=== PATIENT | female | born 1970 | race Caucasian/White ===

== ENCOUNTER 2022-03-11 08:50 | Emergency (ER) | payer OTHER ==
[~2022-03-11] VITALS: Ht 170 cm; Wt 68.0 kg
--- NOTE | 2022-03-11 09:22 | ED EENT ---
History of Present Illness General Chief Complaint: Eye Problems Stated Complaint: LOSS OF VISION Source: patient Exam Limitations: no limitations History of Present Illness Date Seen by Provider: Mar 11, 2022 Time Seen by Provider: 08:57 Initial Comments Patient to the ER by private conveyance from work with chief complaint about 1 hour prior to arrival she started experiencing bright flashes of light in her left eye. She was not doing anything strenuous nor has she had any recent head trauma. She has a history of 3 aneurysms that have been coiled by interventional radiology at [facility]. She is followed with a neurologist at [facility] in the past but does not remember his name. She has history of seizures after her bleed a few years ago but does not take AEDs. She recently moved to the area a year ago and does not have a primary care doctor. She called Dr. Painting, interventional radiology at [facility] and they recommend she come to the ER. She says Thursday, 2 days ago the same thing happened and lasted for about an hour or so and then went away. She went to a local ER Thursday, 2 days ago and they did a CT and some blood work and told her they were not sure what was causing her symptoms and told her to follow-up with a doctor yesterday. She is having a mild right parietal scalp headache. She did not have this headache 2 days ago. She has not taken anything for it. She is not on any blood thinners. She smokes daily and drinks alcohol daily. She says she had some memory troubles while she was having the flashes of light on Thursday and does not remember half an hour of her visit to the ER. Allergies and Home Medications Allergies Coded Allergies: bee venom protein (honey bee) (Verified Allergy, Unknown, Anaphylaxis, 03/11/22) Patient Home Medication List Home Medication List Reviewed: Yes Review of Systems Review of Systems Constitutional: No chills, No diaphoresis Eyes: Denies Blindness, Denies Blurred Vision Ears: Denies Dizziness, Denies Pain Nose: denies clots, denies congestion Mouth: denies clots, denies pain, denies swelling Throat: denies pain, denies swelling Respiratory: No cough, No hemoptysis Cardiovascular: No chest pain, No palpitations Gastrointestinal: No abdominal pain, No constipation, No diarrhea All Other Systems Reviewed Negative Unless Noted: Yes Past Jfrkspl-Zuitqk-Sitsgt Hx Patient Social History Tobacco Use?: Yes Tobacco type used: Cigarettes Smoking Status: Current Everyday Smoker Use of E-Cig and/or Vaping dev: No Substance use?: No Alcohol Use?: Yes Alcohol type: Beer Alcohol Frequency: Daily Physical Exam Vital Signs Vital Signs - First Documented 03/11/22 09:05 Temp 36.5 Pulse 98 Resp 16 B/P (MAP) 148/88 (108) Height, Weight, BMI Height: '" Weight: lbs. oz. kg; BMI Method: General Appearance: WD/WN, mild distress Eyes: bilateral eye normal inspection, bilateral eye PERRL, bilateral eye EOMI, bilateral eye other (Bilateral pupils are 4 mm, reactive without any cell and flare on funduscopic exam. Vessels unremarkable. No erythema or injection, exudate or other external adventitious findings.) Ears: bilateral ear auricle normal, bilateral ear canal normal, bilateral ear TM normal Nose: normal inspection; No active bleeding Mouth/Throat: normal mouth inspection, pharynx normal Neck: full range of motion, supple, normal inspection Cardiovascular: normal peripheral pulses, regular rate, rhythm, no edema Respiratory: lungs clear, normal breath sounds, no respiratory distress, no ac cessory muscle use Gastrointestinal: normal bowel sounds, non tender, soft Neurologic/Psychiatric: alert, normal mood/affect, oriented x 3 Progress/Results/Core Measures Results/Orders Lab Results Laboratory Tests Test 03/11/22 09:25 Range/Units White Blood Count 9.0 4.3-11.0 10^3/uL Red Blood Count 4.72 3.80-5.11 10^6/uL Hemoglobin 15.1 11.5-16.0 g/dL Hematocrit 46 35-52 % Mean Corpuscular Volume 98 80-99 fL Mean Corpuscular Hemoglobin 32 25-34 pg Mean Corpuscular Hemoglobin Concent 33 32-36 g/dL Red Cell Distribution Width 12.8 10.0-14.5 % Platelet Count 228 130-400 10^3/uL Mean Platelet Volume 9.5 9.0-12.2 fL Immature Granulocyte % (Auto) 0 % Neutrophils (%) (Auto) 75 42-75 % Lymphocytes (%) (Auto) 17 12-44 % Monocytes (%) (Auto) 7 0-12 % Eosinophils (%) (Auto) 2 0-10 % Basophils (%) (Auto) 0 0-10 % Neutrophils # (Auto) 6.7 1.8-7.8 10^3/uL Lymphocytes # (Auto) 1.5 1.0-4.0 10^3/uL Monocytes # (Auto) 0.6 0.0-1.0 10^3/uL Eosinophils # (Auto) 0.2 0.0-0.3 10^3/uL Basophils # (Auto) 0.0 0.0-0.1 10^3/uL Immature Granulocyte # (Auto) 0.0 0.0-0.1 10^3/uL Erythrocyte Sedimentation Rate 7 0-30 MM/HR Sodium Level 141 135-145 MMOL/L Potassium Level 4.1 3.6-5.0 MMOL/L Chloride Level 106 98-107 MMOL/L Carbon Dioxide Level 22 21-32 MMOL/L Anion Gap 13 5-14 MMOL/L Blood Urea Nitrogen 13 7-18 MG/DL Creatinine 0.67 0.60-1.30 MG/DL Estimat Glomerular Filtration Rate 106 BUN/Creatinine Ratio 19 Glucose Level 106 H 70-105 MG/DL Calcium Level 9.8 8.5-10.1 MG/DL C-Reactive Protein High Sensitivity 0.12 0.00-0.50 MG/DL My Orders Orders - MERCEDEZ DUBIOS Ct Head Wo-R/O Stroke (03/11/22 09:14) Ed Iv/Invasive Line Start (03/11/22 09:14) Cbc With Automated Diff (03/11/22 09:16) Hs C Reactive Protein (03/11/22 09:16) Basic Metabolic Panel (03/11/22 09:16) Ed Iv/Invasive Line Start (03/11/22 09:16) Ns Iv 500 Ml (Sodium Chloride 0.9%) (03/11/22 09:30) Erythrocyte Sedimentation Rate (03/11/22 09:27) Lorazepam Injection (Ativan Injection) (03/11/22 11:15) Ct Angio Head/Neck (03/11/22 11:09) Lorazepam Injection (Ativan Injection) (03/11/22 11:12) Iohexol Injection (Omnipaque 350 Mg/Ml 1 (03/11/22 11:30) Ns (Ivpb) (Sodium Chloride 0.9% Ivpb Bag (03/11/22 11:30) Medications Given in ED Current Medications Medications Dose Ordered Sig/Dereje Route Start Time Stop Time Status Last Admin Dose Admin Iohexol 100 ml ONCE ONCE IV 03/11/22 11:30 03/11/22 11:31 DC 03/11/22 11:34 75 ML Lorazepam 1 mg ONCE ONCE IVP 03/11/22 11:15 03/11/22 11:16 DC 03/11/22 11:13 1 MG Sodium Chloride 100 ml ONCE ONCE IV 03/11/22 11:30 03/11/22 11:31 DC 03/11/22 11:34 80 ML Sodium Chloride 500 ml @ 0 mls/hr Q0M ONCE IV 03/11/22 09:30 03/11/22 09:31 DC 03/11/22 09:45 500 MLS/HR Vital Signs/I&O 03/11/22 09:05 Temp 36.5 Pulse 98 Resp 16 B/P (MAP) 148/88 (108) Progress Progress Note #1: Time: 09:25 Progress Note Unremarkable basic funduscopic exam. Plan to get visual acuity screening and diane cordoba consult with [facility] neurology. Differential includes partial, complex seizures, less likely a bleed such as a subarachnoid, headache syndrome although this is less likely to present in the sixth decade of life. We will complete a CT with IV contrast. If she was having a bleed then hopefully something will show up 2 days later. She does not have any meningismus signs and has a septic vitals. We will check some basic labs including a CRP and ESR. Progress Note #2: Time: 10:20 Progress Note Discussed the case with the triage nurse at [facility] and they are paging neurology. Progress Note #3: Time: 10:[address] Lange from [facility] call us back as well as Dr. Mitchell's from the triage center called us back we had a conversation about her case and they recommended we consult with neuro interventional radiology. They recommend she be on antiplatelets and from their standpoint outpatient follow-up would be fine. Stephanie from the triage center will call us back with neuro interventional radiology for a consult. Progress Note #4: Time: 10:43 Progress Note Discussed the case with neuro IR Dr. Ribera who is familiar with her case. He says her last procedure was a little over a year ago and he is okay with aspirin monotherapy only. He said the last thing that they were concerned about was her contralateral carotid and that should not explain anything in her left eye. He would recommend a CT angiogram on outpatient basis and his office will set that up. They will also set up follow-up for her. He would like us to make sure there is nothing such as vitreous humor detachment or other intraocular pathology by getting a good slit-lamp examination by ophthalmology or optometry set up. We will reach out to Dr. Gautam's office and see if we can get this done today. Progress Note #5: Time: 11:58 Progress Note About half an hour to 45 minutes ago the patient started having some full body twitching which she could not voluntarily suppress or control. She says she felt very confused. She had difficulty walking to the bathroom and when she came out did not know where she was. We put her in bed and gave her a milligram of Ativan the theory that she is perhaps having a complex partial seizure and about 15 minutes later when we checked on her her twitching activity had gone away. She now knows where she is and remembers the plan. She is having a little bit of difficulty with fine motor control of her upper extremities and lower extremities but is otherwise neurologically intact. While she was having these involuntary twitching motions she was also looking to the left and had leftward gaze deviation however she could overcome it voluntarily on command. Went ahead and completed the CT angiogram and we will discussed the results of this and are clinical findings with neuro IR at [facility]. Progress Note #6: Time: 13:02 Progress Note The patient is sitting up in a chair no longer complaining of any flashes of light in her eye nor having problems with depth perception. She is able to type on her phone. She answers questions appropriately and appears to be neurologically intact. She has called for a ride to take her to the eye doctor's office for slit-lamp examination. Return precautions were discussed and if she does not hear from neuro interventional radiology today then she is to call them in the morning. Diagnostic Imaging Diagonstic Imaging: CT Plain Films/CT/US/NM/MRI: head Comments [facility], [place] NAME: SANDRA VILLARREAL [facility] REC#: [id number] PT STATUS: REG ER : 1970 PHYSICIAN: MERCEDEZ DUBOIS MD ADMIT DATE: 03/11/22/ER Draft Date of Exam:03/11/22 CT HEAD WO-R/O STROKE PROCEDURE: CT head wo r/o stroke. TECHNIQUE: Multiple contiguous axial images were obtained through the brain without the use of intravenous contrast. Auto Exposure Controls were utilized during the CT exam to meet ALARA standards for radiation dose reduction. INDICATION: Neuro deficit. No prior studies are available for comparison. There appear to be embolization coils in the region of the [place] of [place] on the left side from prior aneurysm surgery. Ventricles and sulci are within normal limits. No sulcal effacement or midline shift is identified. No acute intra-axial or extra-axial hemorrhage is detected. Cisterns are patent. Visualized paranasal sinuses are clear. IMPRESSION: No acute intracranial process is detected. Dictated on workstation # [id number] Dict: 03/11/22 0939 Trans: 03/11/22 0944 [facility] [id number] Interpreted by: CARIN CALABRESE MD Electronically signed by: Reviewed: Reviewed by La Diagonstic Imaging: CT (angio) Plain Films/CT/US/NM/MRI: head Comments [facility]. [place], [place] NAME: SANDRA VILLARREAL [facility] REC#: [id number] PT STATUS: REG ER : 1970 PHYSICIAN: MERCEDEZ DUBOIS MD ADMIT DATE: 03/11/22/ER Draft Date of Exam:03/11/22 CT ANGIO HEAD/NECK PROCEDURE: CT angiography of the head and CT angiography of the neck with and without contrast. TECHNIQUE: Contiguous noncontrast images were obtained from the skull base through the vertex. After intravenous contrast administration, helical CT angiography of the neck was performed. Source data was reformatted into 3D MIP projections. Delayed postcontrast acquisition was also obtained. Auto Exposure Controls were utilized during the CT exam to meet ALARA standards for radiation dose reduction. INDICATION: History on earlier performed noncontrasted head CT was for "neurological deficit". That study was nonacute. CT angiogram neck and head performed for vascular evaluation. FINDINGS: Delayed postcontrast-enhanced CT showed no hemorrhage or contrast extravasation. No abnormal enhancement. 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 The branching pattern of the great vessels is otherwise normal. Cervical vertebral arteries are dominant on the left and small but nonfocal and nonpathologic on the right. Bilateral common carotids are patent. There are mixed soft and hard calcified plaques at the carotid bulbs and bifurcations, greater left, while there is no hemodynamically significant degree of stenosis. Cervical internal carotids beyond that level are widely patent and nonfocal. CT ANGIOGRAM HEAD: Minimal scattered calcified plaques in the left intradural vertebral, non-stenosing; the right nonfocal. There is calcified plaque at the basilar resulting in a moderate stenosis at its distal third. No basilar thrombus or occlusion. The bilateral HOUSEKEEPER HEAD segments are opacified. There is a presumed aneurysm coil mass at the periophthalmic right ICA and the supraclinoid left ICA. This metallic artifact results in some regional distortion. No filling of an aneurysmal sac is identified. The A1 segments, the A-comm, and the anterior cerebral arteries are patent. The bilateral middle cerebral arterial segments showed no identifiable thrombus or occlusion. There is some atherosclerotic narrowing of the right M1 segment of less than 50%. No opacified untreated aneurysm is identified. No contrast extravasation. IMPRESSION: Treated intracranial ICA aneurysms without sac filling. No untreated aneurysm found. No thrombus or large vessel occlusion, and no hemodynamically significant arterial stenosis in the neck or head. Dictated on workstation # [id number] Dict: 03/11/22 1143 Trans: 03/11/22 1215 [id number] Interpreted by: NEHEMIAS HOOKER Electronically signed by: Reviewed: Reviewed by Me Consults : Consulting Physician: NEYDA GAUTAM OD Consults Notes [id number]: Discussed the case with Dr. Gautam, optometry and we are grateful that he is able to work the patient in at 1300. Departure Impression Primary Impression: Photopsia of left eye Additional Impression: History of cerebral aneurysm repair Disposition: 01 HOME, SELF-CARE Condition: Stable Departure-Patient Inst. Decision time for Depature: 13:03 Referrals: NEYDA GAUTAM OD NO,LOCAL PHYSICIAN (PCP) Primary Care Physician Patient Instructions: Brain Aneurysm (DC) Add. Discharge Instructions: Go straight to Dr. Gautam's office. After they perform a slit-lamp exam if there is nothing further to be done there then you should hear from the interventional radiology clinic. If they do not call you today then call them first thing in the morning to make the next step in your plan. All discharge instructions reviewed with patient and/or family. Voiced understanding. Work/School Note: Work Release Form Date Seen in the Emergency Department: Mar 11, 2022 Return to Work: Mar 17, 2022 Restrictions: No Restrictions Copy Copies To 1: NEYDA GAUTAM OD, TITUS J Mar 11, 2022 09:22
[2022-03-11] MEDS ORDERED: NS IV 500 ML 500 ML IV ONE (09:30)
[2022-03-11 09:32] LABS: BASOPHILS % (AUTO) 0 % (0-10); EOSINOPHILS # (AUTO) 0.2 10^3/uL (0.0-0.3); EOSINOPHILS % (AUTO) 2 % (0-10); HEMATOCRIT 46 % (35-52); HEMOGLOBIN 15.1 g/dL (11.5-16.0); LYMPHOCYTES # (AUTO) 1.5 10^3/uL (1.0-4.0); LYMPHOCYTES % (AUTO) 17 % (12-44); MEAN CORPUSCULAR HEMOGLOBIN 32 pg (25-34); MEAN CORPUSCULAR HGB CONC 33 g/dL (32-36); MEAN CORPUSCULAR VOLUME 98 fL (80-99); MEAN PLATELET VOLUME 9.5 fL (9.0-12.2); MONOCYTES # (AUTO) 0.6 10^3/uL (0.0-1.0); MONOCYTES % (AUTO) 7 % (0-12); NEUTROPHILS # (AUTO) 6.7 10^3/uL (1.8-7.8); NEUTROPHILS % (AUTO) 75 % (42-75); PLATELET COUNT 228 10^3/uL (130-400)
--- NOTE | 2022-03-11 09:46 | Diagnostic Imaging Report ---
PROCEDURE: CT head wo r/o stroke. TECHNIQUE: Multiple contiguous axial images were obtained through the brain without the use of intravenous contrast. Auto Exposure Controls were utilized during the CT exam to meet ALARA standards for radiation dose reduction. INDICATION: Neuro deficit. No prior studies are available for comparison. There appear to be embolization coils in the region of the [place] of [place] on the left side from prior aneurysm surgery. Ventricles and sulci are within normal limits. No sulcal effacement or midline shift is identified. No acute intra-axial or extra-axial hemorrhage is detected. Cisterns are patent. Visualized paranasal sinuses are clear. IMPRESSION: No acute intracranial process is detected. Dictated by: Dictated on workstation # [id number]
[2022-03-11 09:52] LABS: ERYTHROCYTE SEDIMENTATION RATE 7 MM/HR (0-30)
[2022-03-11 10:00] LABS: POTASSIUM 4.1 MMOL/L (3.6-5.0)
[2022-03-11 10:01] LABS: CALCIUM 9.8 MG/DL (8.5-10.1)
[2022-03-11 10:06] LABS: CREATININE SERUM 0.67 MG/DL (0.60-1.30)
[2022-03-11] MEDS ORDERED: LORazepam INJ 2 MG/ML (ATIVAN) VIAL ONE (11:12)
[2022-03-11] MEDS ORDERED: LORazepam INJ 2 MG/ML (ATIVAN) VIAL IVP ONE (11:15)
[2022-03-11] MEDS ORDERED: NS 100 ML (IVPB) BAG IV ONE (11:30)
[2022-03-11] MEDS ORDERED: IOHEXOL 350 MG/ML 100 ML (OMNIPAQUE 350) VIAL IV ONE (11:30)
--- NOTE | 2022-03-11 12:15 | Diagnostic Imaging Report ---
PROCEDURE: CT angiography of the head and CT angiography of the neck with and without contrast. TECHNIQUE: Contiguous noncontrast images were obtained from the skull base through the vertex. After intravenous contrast administration, helical CT angiography of the neck was performed. Source data was reformatted into 3D MIP projections. Delayed postcontrast acquisition was also obtained. Auto Exposure Controls were utilized during the CT exam to meet ALARA standards for radiation dose reduction. INDICATION: History on earlier performed noncontrasted head CT was for "neurological deficit". That study was nonacute. CT angiogram neck and head performed for vascular evaluation. FINDINGS: Delayed postcontrast-enhanced CT showed no hemorrhage or contrast extravasation. No abnormal enhancement. 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 The branching pattern of the great vessels is otherwise normal. Cervical vertebral arteries are dominant on the left and small but nonfocal and nonpathologic on the right. Bilateral common carotids are patent. There are mixed soft and hard calcified plaques at the carotid bulbs and bifurcations, greater left, while there is no hemodynamically significant degree of stenosis. Cervical internal carotids beyond that level are widely patent and nonfocal. CT ANGIOGRAM HEAD: Minimal scattered calcified plaques in the left intradural vertebral, non-stenosing; the right nonfocal. There is calcified plaque at the basilar resulting in a moderate stenosis at its distal third. No basilar thrombus or occlusion. The bilateral AURICULOTHERAPIST segments are opacified. There is a presumed aneurysm coil mass at the periophthalmic right ICA and the supraclinoid left ICA. This metallic artifact results in some regional distortion. No filling of an aneurysmal sac is identified. The A1 segments, the A-comm, and the anterior cerebral arteries are patent. The bilateral middle cerebral arterial segments showed no identifiable thrombus or occlusion. There is some atherosclerotic narrowing of the right M1 segment of less than 50%. No opacified untreated aneurysm is identified. No contrast extravasation. IMPRESSION: Treated intracranial ICA aneurysms without sac filling. No untreated aneurysm found. No thrombus or large vessel occlusion, and no hemodynamically significant arterial stenosis in the neck or head. Dictated by: Dictated on workstation # [id number]
[2022-03-11 13:33] VITALS: BP 114/75
[2022-03-12] MEDS ORDERED: AMLO-251 PO (11:59)
[2022-03-12] MEDS ORDERED: CALC-250 PO (11:59)
[2022-03-12] MEDS ORDERED: IBUP-2473 PO (11:59)
[2022-03-12] MEDS ORDERED: MAGN500T PO (11:59)
[2022-03-12] MEDS ORDERED: NAPR220T66 PO (11:59)
[2022-03-12] MEDS ORDERED: METO50TA15 PO (11:59)
[2022-03-12] MEDS ORDERED: TELM20TA6 PO (11:59)
[2022-03-12] MEDS ORDERED: ACET-2267 PO (11:59)
[2022-03-12] MEDS ORDERED: CETI10TA17 PO (11:59)
[2022-03-12] MEDS ORDERED: UBID100C17 PO (11:59)
[2022-03-12] MEDS ORDERED: ASPI-1238 PO (12:57)
== END 2022-03-11 13:34 | disposition home or self-care (01) ==
LOC: ER 08:54
DX: H53.19 Other subjective visual disturbances (principal); F17.210 Nicotine dependence, cigarettes, uncomplicated; Z86.79 Personal history of other diseases of the circulatory system
CPT/HCPCS: 36415; 70450; 70496; 70498; 80048; 85025; 85652; 86141

== ENCOUNTER 2022-03-11 17:08 | Observation (INO) | payer OTHER ==
[~2022-03-11] VITALS: Ht 170 cm; Wt 68.0 kg
--- NOTE | 2022-03-11 17:53 | ED Neurological Problem ---
General Chief Complaint: Neurological Problems Stated Complaint: VISION CHANGES Nursing Triage Note: ARRIVED VIA AMB TO ROOM 07 ET WAS SENT OVER FROM DR YOO'S OFFICE FOR POSSIBLE STROKE. PT WAS SEEN THIS AM AFTER HAVING VISION CHANGES STARTING AT 0715 TODAY. PT STATES SHE IS BETTER NOW. EYES DILATED FROM THE 'S OFFICE. Source: patient Exam Limitations: no limitations History of Present Illness Date Seen by Provider: Mar 11, 2022 Time Seen by Provider: 17:30 Initial Comments Patient to the ER by private conveyance from Dr. Grewal's office with concernin g symptoms of homonymous hemianopsia on the left side that may point to a central lesion such as a stroke. Patient states she is feeling much better now. The flashes of light are gone and most her peripheral vision has returned. Her balance is better and she is able to walk without standby assist. She has a pertinent history of multiple coiled aneurysms by neuro interventional radiology at [facility] in [facility]. The patient was here in the ER earlier this shift and we had been in contact with the neuro IR team at [facility] Dr. Ribera. She was sent to get a slit-lamp dilated eye exam which did not reveal intraocular pathology. Allergies and Home Medications Allergies Coded Allergies: bee venom protein (honey bee) (Verified Allergy, Unknown, Anaphylaxis, 03/11/22) Patient Home Medication List Home Medication List Reviewed: Yes Review of Systems Review of Systems Constitutional: No chills, No diaphoresis Eyes: See HPI; Denies Blindness, Denies Drainage Ears, Nose, Mouth, Throat: denies ear pain, denies ear discharge Respiratory: No cough, No hemoptysis Cardiovascular: No chest pain, No palpitations Gastrointestinal: No abdominal pain, No nausea Genitourinary: No discharge, No dysuria Musculoskeletal: No back pain, No joint pain All Other Systems Reviewed Negative Unless Noted: Yes Past Brueutx-Dgnwic-Kjbbiu Hx Patient Social History Tobacco Use?: Yes Smoking Status: Current Everyday Smoker Substance use?: No Alcohol Use?: Yes Alcohol type: Beer Alcohol Frequency: Daily Immunizations Up To Date First/Initial COVID19 Vaccinat: 2020 Second COVID19 Vaccination Cooper: [place] DATE COVID19 Vaccine Career Development Specialist: MOISES Physical Exam Vital Signs Vital Signs - First Documented 03/11/22 17:15 Temp 36.3 Pulse 105 Resp 16 B/P (MAP) 144/92 (109) Pulse Ox 96 O2 Delivery Room Air Capillary Refill : Less Than 3 Seconds Height, Weight, BMI Height: '" Weight: lbs. oz. kg; 23.00 BMI Method: General Appearance: WD/WN, no apparent distress HEENT: PERRL/EOMI (6mm fixed), pharynx normal Neck: full range of motion, normal inspection Respiratory: lungs clear, normal breath sounds, no respiratory distress, no accessory muscle use Cardiovascular: normal peripheral pulses, regular rate, rhythm Peripheral Pulses: 2+ Radial Pulses (R), 2+ Radial Pulses (L) Gastrointestinal: normal bowel sounds, non tender, soft Extremities: normal inspection, normal capillary refill Neurologic/Psychiatric: knocker off II-XII nml as tested, no motor/sensory deficits, alert, normal mood/affect, oriented x 3 Crainal Nerves: normal hearing, normal speech Motor/Sensory: no motor deficit, no sensory deficit Skin: normal color, warm/dry Stroke Onset of Symptoms Date of Onset of Symptoms: Mar 11, 2022 Symptoms onset unknown: Yes NIH Stroke Scale Assessment Select: Initial 1800 Level of Consciousness: 0=Alert (0), Level of Consciousness-Questions: 0=Answers both month/age (0), LOC Commands: 0=Performs both tasks (0), Gaze: Normal (0), Visual Mcdermott: 1=Partial hemianopia (1), Motor Function-Arms Right: 0=No drift (0), Motor Function- Arms Left: 0=No drift (0), Motor Function-Legs Right: 0=No drift (0), Motor Function-Legs Left: 0=No drift (0), Limb Ataxia: 0=Absent (0), Sensory: 0=No rmal:no loss (0), Best Language: 0=No aphasia (0), Dysarthria: 0=Normal (0), Extinction & Inattention: 0=No abnormality (0), Total: 1 Progress/Results/Core Measures Results/Orders Vital Signs/I&O 03/11/22 17:15 Temp 36.3 Pulse 105 Resp 16 B/P (MAP) 144/92 (109) Pulse Ox 96 O2 Delivery Room Air Blood Pressure Mean: 109 Progress Progress Note : Time: 17:48 Progress Note Discussed the case with Dr. Nicole at [facility] transfer team. At this time she recommends the patient get an MRI. She does not need to go to [facility]. She is happy to consult if we have any questions. Departure Communication (Admissions) Time/Spoke to Admitting Phy: 18:14 Discussed the case with Dr. Coles who agrees to admit the patient to [facility] telemetry with neurochecks. Impression Primary Impression: TIA (transient ischemic attack) Additional Impression: CVA (cerebral vascular accident) Qualified Codes: I63.9 - Cerebral infarction, unspecified Disposition: 01 HOME, SELF-CARE Condition: Stable Admissions Decision to Admit Reason: Admit from ER (General) Decision to Admit/Date: Mar 11, 2022 Time/Decision to Admit Time: 18:10 Departure-Patient Inst. Referrals: NO,LOCAL PHYSICIAN (PCP/Family) Primary Care Physician MERCEDEZ DUBOIS Mar 11, 2022 17:53
[2022-03-11 19:35] VITALS: BP 122/80
[2022-03-11] MEDS ORDERED: NICOTINE 21 MG (NICODERM) PATCH ONE (20:37)
[2022-03-11] MEDS: NICOTINE 21 MG (NICODERM) PATCH TD SCH (20:38)
[2022-03-11] MEDS ORDERED: CATHETER FLUSH 10 ML SYR IVP PRN (22:30)
[2022-03-11] MEDS ORDERED: ASPIRIN 300 MG (5 GR) SUPPOSITORY PR PRN (22:30)
[2022-03-11] MEDS ORDERED: MILK OF MAGNESIA 400 MG/5 ML 30 ML UDC PO PRN (22:30)
[2022-03-11] MEDS ORDERED: ACETAMINOPHEN 325 MG TABLET PO PRN ×2 (22:30)
[2022-03-11] MEDS ORDERED: ONDANSETRON 4 MG/2 ML (SDV) Z0FRAN IV PRN (22:30)
[2022-03-11 23:00] VITALS: BP 93/55
[2022-03-12 04:38] VITALS: BP 125/79
[2022-03-12 05:55] LABS: BASOPHILS % (AUTO) 1 % (0-10); EOSINOPHILS # (AUTO) 0.2 10^3/uL (0.0-0.3); EOSINOPHILS % (AUTO) 2 % (0-10); HEMATOCRIT 46 % (35-52); HEMOGLOBIN 14.8 g/dL (11.5-16.0); LYMPHOCYTES # (AUTO) 1.6 10^3/uL (1.0-4.0); LYMPHOCYTES % (AUTO) 21 % (12-44); MEAN CORPUSCULAR HEMOGLOBIN 32 pg (25-34); MEAN CORPUSCULAR HGB CONC 32 g/dL (32-36); MEAN CORPUSCULAR VOLUME 98 fL (80-99); MEAN PLATELET VOLUME 9.8 fL (9.0-12.2); MONOCYTES # (AUTO) 0.6 10^3/uL (0.0-1.0); MONOCYTES % (AUTO) 8 % (0-12); NEUTROPHILS # (AUTO) 5.1 10^3/uL (1.8-7.8); NEUTROPHILS % (AUTO) 67 % (42-75); PLATELET COUNT 203 10^3/uL (130-400); WHITE BLOOD COUNT 7.6 10^3/uL (4.3-11.0)
[2022-03-12 05:59] LABS: POTASSIUM 4.1 MMOL/L (3.6-5.0)
[2022-03-12 06:00] LABS: CALCIUM 9.9 MG/DL (8.5-10.1)
[2022-03-12] MEDS ORDERED: CATHETER FLUSH 10 ML SYR IVP SCH (06:00)
[2022-03-12 06:05] LABS: CREATININE SERUM 0.68 MG/DL (0.60-1.30)
[2022-03-12 07:34] VITALS: BP 113/73
--- NOTE | 2022-03-12 08:44 | Physical Therapy Progress Note ---
Therapy Progress Note Order received for PT evaluation. Patient states she has been getting around well, and demonstrates ambulation in her room. She ambulates independently without an AD. Patient states her vision has improved and she has no difficulty with functional mobility. Patient will be discharged from PT services at this time. Instructed patient to contact nurse if she needs PT services in the future. EZEQUIEL BAKER PT Mar 12, 2022 08:44
[2022-03-12] MEDS ORDERED: DOCUSATE SODIUM 100 MG (COLACE) CAP PO SCH (09:00)
[2022-03-12] MEDS ORDERED: ASPIRIN 325 MG (5 GR) TABLET PO SCH (09:00)
[2022-03-12] MEDS ORDERED: meTOprolol TARTRATE 50 MG (LOPRESSOR) TAB PO SCH (09:00)
--- NOTE | 2022-03-12 09:25 | Speech Therapy Progress Note ---
Therapy Progress Note Speech pathology completed a chart review and visited with the patient regarding the consultation. Per patient, she is not experiencing any changes, difficulties, or concerns with her speech, language, cognition, or swallowing. The patient reports baseline function at this time. Due to this, skilled speech pathology will sign off. Please re-consult speech pathology with additional questions or concerns. Thank you for the consultation. ES GUTIÉRREZ Mar 12, 2022 09:25
--- NOTE | 2022-03-12 09:58 | Occ Therapy Progress Note ---
Therapy Progress Note OT orders received and chart reviewed. OT visited with pt who indicates her symptoms have resolved and she is back to baseline. She is independent with functional mobility in her room, and independent with ADLS. OT to discharge pt at this time, as pt is independent and at OF. If pt has a change in status, please send new OT orders. D/C from OT. 1, visit GOMEZ NOVAK OT Mar 12, 2022 09:58
[2022-03-12] MEDS ORDERED: LORazepam 1 MG (ATIVAN) TAB PO PRN (10:15)
--- NOTE | 2022-03-12 11:16 | Diagnostic Imaging Report ---
CLINICAL INDICATION: Patient is having vision problems. Patient has aneurysm coils and stents in the brain which are MRI safe. EXAM: MRI of the brain performed without IV contrast. Sequences include sagittal T1, axial T2, axial flair, axial gradient echo, DWI, ADC map, and axial T1. COMPARISON: CT angiogram of the head and neck and head CT without contrast dated 08/11/2022. FINDINGS: There is a minimal amount of patchy areas of cortical and subcortical high T2 signal involving the right occipital lobe region. There is no evidence of diffusion restriction or intraparenchymal hemorrhage. There is no brain herniation or midline shift. There is no hydrocephalus. Basal cisterns are unremarkable. The viejas of [place] vascular structures show no gross abnormality, as visualized. The pituitary gland, sella, and suprasellar regions are unremarkable as visualized. Extracranial soft tissues, skull, orbits are unremarkable. Paranasal sinuses are clear. There is minimal fluid involving both mastoid air cells with left side more than right. IMPRESSION: 1: There is interval development of a minimal amount of patchy areas of high T2 signal involving the cortical and subcortical right occipital lobe region. There is no intraparenchymal hemorrhage or diffusion restriction. These findings may be related to posterior reversible encephalopathy syndrome. Subacute infarct changes cannot be completely excluded. Followup MRI of the brain with and without contrast in one month is suggested to evaluate for evolution. 2: The remainder of the brain parenchyma is unremarkable. Dictated by: Dictated on workstation # [id number]
[2022-03-12 11:47] VITALS: BP 115/81
[2022-03-12] MEDS ORDERED: NAPR220T66 PO (11:59)
[2022-03-12] MEDS ORDERED: IBUP-2473 PO (11:59)
[2022-03-12] MEDS ORDERED: TELM20TA6 PO (11:59)
[2022-03-12] MEDS ORDERED: MAGN500T PO (11:59)
[2022-03-12] MEDS ORDERED: ACET-2267 PO (11:59)
[2022-03-12] MEDS ORDERED: CALC-250 PO (11:59)
[2022-03-12] MEDS ORDERED: CETI10TA17 PO (11:59)
[2022-03-12] MEDS ORDERED: UBID100C17 PO (11:59)
[2022-03-12] MEDS ORDERED: METO50TA15 PO (11:59)
[2022-03-12] MEDS ORDERED: AMLO-251 PO (11:59)
[2022-03-12] MEDS: NICOTINE 21 MG (NICODERM) PATCH TD SCH (12:16)
[2022-03-12] MEDS ORDERED: ASPI-1238 PO (12:57)
[2022-03-12 14:00] VITALS: BP 115/81
--- NOTE | 2022-03-12 23:17 | Short Stay Summary-Hospitalist ---
History of Present Illness HPI/Chief Complaint Lea Armstrong is a 51 year old female with PMH HTN, brain aneurysm s/p clipping, who presented with vision changes. She was not having any weakness. She did not have any other focal deficits. Upon my exam, her vision issues have nearly resolved. She is having some mild peripheral vision impairment. She denies any fevers or chills. She denies chst pain or shortness of breath. She denies abdominal pain. She had her aneurysm clipping about 5 years ago and she has not had any issues since that time. Source: patient Exam Limitations: no limitations Date Seen 03/12/22 Time Seen by a Provider: 12:15 Attending Physician No,Local Physician PCP Admitting Physician: Peggy Contreras MD Attending Physician: Peggy Contreras MD Referring Physician Date of Admission Mar 11, 2022 at 18:25 Home Medications & Allergies Home Medications Reviewed patient Home Medication Reconciliation performed by pharmacy medication reconciliations composite technician and/or nursing. Patients Allergies have been reviewed. Allergies Allergies Coded Allergies bee venom protein (honey bee) (Verified Allergy, Unknown, Anaphylaxis, 03/11/22) Past Xwusiju-Wlkvqe-Qmoquo Hx Patient Social History Tobacco Use?: Yes Smoking Status: Current Everyday Smoker Substance use?: No Alcohol Use?: Yes Alcohol type: Beer Additional alcohol type: 5-6 times as week Alcohol Frequency: Daily Additional Alcohol Comments: 6 drinks a day Pt feels they are or have been: No Immunizations Up To Date First/Initial COVID19 Vaccinat: 2020 Second COVID19 Vaccination Cooper: [facility] DATE Tetanus Booster (TDap): Less Than 5 Years Current Status Advance Directives: No Communicates: Verbally Primary Language: [place] Preferred Spoken Language: [place] Is interpretation needed?: No Sensory deficits: Vision impairment Additional sensory deficits: 1 contact in left eye Family Medical History No Pertinent Family Hx Review of Systems Constitutional: no symptoms reported EENTM: blurred vision, vision loss Respiratory: no symptoms reported Cardiovascular: no symptoms reported Gastrointestinal: no symptoms reported Genitourinary: no symptoms reported Physical Exam Physical Exam Vital Signs Vital Signs - First Documented 03/11/22 17:15 Temp 36.3 Pulse 105 Resp 16 B/P (MAP) 144/92 (109) Pulse Ox 96 O2 Delivery Room Air Capillary Refill : Less Than 3 Seconds Height, Weight, BMI Height: '" Weight: lbs. oz. kg; 23.52 BMI Method: General Appearance: No Apparent Distress, WD/WN HEENT: PERRL/EOMI, Pharynx Normal Neck: Normal Inspection, Supple Respiratory: Lungs Clear, No Respiratory Distress Cardiovascular: Regular Rate, Rhythm, No Murmur Gastrointestinal: Normal Bowel Sounds, Soft Extremity: Normal Inspection, No Pedal Edema Neurologic/Psychiatric: Alert, Normal Mood/Affect Results Results/Procedures Labs Laboratory Tests 03/12/22 05:44 Patient resulted labs reviewed. Imaging: Reviewed Imaging Report Short Stay Diagnosis Discharge Diagnosis-Short Stay Admission Diagnosis Acute ischemic stroke Final Discharge Diagnosis Acute ischemic stroke Conclusion Plan Acute ischemic right occipital stroke HTN CT negative MRI with right occipital stroke vs PRES Continue Aspirin Refused statin due to intolerance Continue anti-hypertensive meds Follow up with your PCP Diagnosis/Problems Diagnosis/Problems (1) Occipital stroke Status: Acute (2) CVA (cerebral vascular accident) Status: Acute Qualifiers: Qualified Codes: I63.9 - Cerebral infarction, unspecified Clinical Quality Measures Stroke: Date of last known well: Mar 11, 2022 Symptoms onset unknown: Yes PEGGY CONTRERAS MD Mar 12, 2022 23:17
== END 2022-03-12 12:06 | disposition home or self-care (01) ==
LOC: EDUNIT# 17:08 → ER 17:11 → 4TH 18:25 → UNDOADMOB 18:25 → 4TH 19:30 → UNDODISOB 03-12 12:06
PROVIDERS: ADMIT Internal Medicine; ATTEND Internal Medicine
DX: I63.9 Cerebral infarction, unspecified (principal); F17.210 Nicotine dependence, cigarettes, uncomplicated
CPT/HCPCS: 70551; 80048; 80061; 85025; 94664; 99284; G0378; 36415

== ENCOUNTER 2022-07-07 20:03 | Observation (INO) | payer OTHER ==
[~2022-07-07] VITALS: Ht 170.2 cm; Wt 68.7 kg
[~2022-07-07 20:03] MED LIST: ACET-2267 PO; AMLO-251 PO; ASPI-1238 PO; CALC-250 PO; CETI10TA17 PO; IBUP-2473 PO; MAGN500T PO; METO50TA15 PO; NAPR220T66 PO; TELM20TA6 PO; UBID100C17 PO
[2022-07-07] MEDS ORDERED: LOSARTAN 50 MG (COZAAR) TAB PO ONE (20:30)
[2022-07-07] MEDS ORDERED: amLODIPine 10 MG (NORVASC) TAB PO ONE (20:30)
--- NOTE | 2022-07-07 20:30 | ED Neurological Problem ---
General Chief Complaint: Neurological Problems Stated Complaint: TROUBLE WALKING,CONFUSION,"LIGHT" FLASHING IN EYE Nursing Triage Note: PT ARRIVAL TO ER VIA PRIVATE VEHICLE FROM WORK WITH COMPLAINTS OF OFF BALANCE, LEFT SIDED VISION CHANGES. PT HAS HISTORY OF STROKE, AND TIA. PT STATES THAT WHEN SHE HAD HER STROKE SHE WAS HAVING LEFT SIDED VISION CHANGES WITH WHAT SEEMED LIKE A FLASH IN LEFT EYE. PATIENT IS EXPERIENCING SAME TODAY. PT IS ALERT AND ORIENTED. PT ALSO FEELS LIKE SHE CAN SEE THINGS OFF TO LEFT SIDE THAT ARENT THERE. PT DENIES HEADACHE. Source: patient Exam Limitations: no limitations History of Present Illness Date Seen by Provider: Jul 07, 2022 Time Seen by Provider: 20:06 Initial Comments 51-year-old female with past medical history of hypertension, prior brain aneurysm status post coiling several years ago, and recent stroke versus PRES in February of this year (came in with left sided vision changes, normal fundoscopic exam by optometry, MRI with right sided occipital stroke vs PRES) coming in due to the same symptoms of the left-sided vision loss. Happened more than 6-1/2 hours ago with flashers in her left eye. She states this is the exact same thing that occurred in February. She states at that time her vision had eventually improved and has been normal. Denies any weakness, numbness, chest pain, shortness of breath, abdominal pain, nausea, vomiting, diarrhea, headache, neck stiffness, fever, chills, or any other concerns. Takes a baby aspirin daily but no other blood thinners. Allergies and Home Medications Allergies Coded Allergies: bee venom protein (honey bee) (Verified Allergy, Unknown, Anaphylaxis, 03/11/22) Patient Home Medication List Home Medication List Reviewed: Yes Acetaminophen (Tylenol Extra Strength) 500 Mg Tablet, 500-1,000 MG PO Q8H PRN for PAIN-MILD (1-4), (Reported) Entered as Reported by: ROBERT PEARSON on 03/12/22 1159 Amlodipine Besylate (Amlodipine Besylate) 10 Mg Tablet, 10 MG PO DAILY, (Reported) Entered as Reported by: ROBERT PEARSON on 03/12/22 1159 Aspirin (Aspirin EC) 81 Mg Tablet.dr, 81 MG PO DAILY Prescribed by: KEISHA CONTRERAS on 03/12/22 1257 Cetirizine HCl (Cetirizine HCl) 10 Mg Tablet, 10 MG PO DAILY PRN for ALLERGY SYMPTOMS, (Reported) Entered as Reported by: ROBERT PEARSON on 03/12/221158 Cholecalciferol (Vitamin D3) (Vitamin D3) 125 Mcg (5000 Unit) Tablet, 125 MCG PO DAILY, (Reported) Entered as Reported by: ROBERT PEARSON on 03/12/221158 Ibuprofen (Ibuprofen) 200 Mg Tablet, 400 MG PO Q8H PRN for PAIN-MILD (1-4), (Reported) Entered as Reported by: ROBERT PEARSON on 03/12/221158 Magnesium Oxide (Magnesium Oxide) 500 Mg Tablet, 500 MG PO DAILY, (Reported) Entered as Reported by: ROBERT PEARSON on 03/12/221158 Metoprolol Tartrate (Metoprolol Tartrate) 50 Mg Tablet, 50 MG PO BID, (Reported) Entered as Reported by: ROBERT PEARSON on 03/12/221158 Naproxen Sodium (Aleve) 220 Mg Tablet, 220 MG PO Q12H PRN for PAIN-MILD (1-4), (Reported) Entered as Reported by: ROBERT PEARSON on 03/12/221158 Telmisartan (Telmisartan) 20 Mg Tablet, 20 MG PO DAILY, (Reported) Entered as Reported by: ROBERT PEARSON on 03/12/221158 Ubidecarenone (Coq-10) 100 Mg Capsule, 200 MG PO DAILY, (Reported) Entered as Reported by: ROBERT PEARSON on 03/12/221158 Review of Systems Review of Systems Constitutional: No fever Eyes: See HPI Ears, Nose, Mouth, Throat: no symptoms reported Respiratory: no symptoms reported Cardiovascular: no symptoms reported Gastrointestinal: no symptoms reported Genitourinary: no symptoms reported Musculoskeletal: no symptoms reported Skin: no symptoms reported Psychiatric/Neurological: See HPI Endocrine: No Symptoms Reported Hematologic/Lymphatic: No Symptoms Reported All Other Systems Reviewed Negative Unless Noted: Yes Past Sssebyp-Jnegen-Ttzqkn Hx Patient Social History Tobacco Use?: Yes Tobacco type used: Cigarettes Smoking Status: Current Everyday Smoker Use of E-Cig and/or Vaping dev: No Substance use?: No Alcohol Use?: Yes Alcohol type: Beer Alcohol Frequency: Daily Pt feels they are or have been: No Immunizations Up To Date Influenza Vaccine Up-to-Date: No; Not Current First/Initial COVID19 Vaccinat: 2020 Second COVID19 Vaccination Cooper: [place] DATE Third COVID19 Vaccination Date: 2020 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 oz. kg; 23.52 BMI Method: General Appearance: WD/WN, no apparent distress HEENT: PERRL/EOMI, normal ENT inspection, pharynx normal, other (Normal visual acuity straight on, homonymous hemianopsia on the left) Neck: non-tender, full range of motion, supple, normal inspection Respiratory: chest non-tender, lungs clear, normal breath sounds, no respiratory distress, no accessory muscle use Cardiovascular: regular rate, rhythm, no edema, no murmur Gastrointestinal: normal bowel sounds, non tender, soft; No distended, No guarding, No rebound Back: normal inspection, no CVA tenderness, no vertebral tenderness Extremities: normal range of motion, non-tender, normal inspection, no pedal edema, no calf tenderness, normal capillary refill Neurologic/Psychiatric: no motor/sensory deficits, alert, normal mood/affect, oriented x 3, other (Normal hkgxjj-my-lciw, normal dkbp-ar-wzao, normal gait, homonymous hemianopsia on the left but otherwise cranial nerves intact) Crainal Nerves: normal hearing, normal speech, PERRL Coordination/Gait: normal finger to nose, normal gait Motor/Sensory: no motor deficit, no sensory deficit, no pronator drift Skin: normal color, warm/dry Lymphatic: no adenopathy Stroke Onset of Symptoms Date of Onset of Symptoms: Jul 07, 2022 Time of Symptom Onset: 14:00 Onset of Symptoms: Yes NIH Stroke Scale Assessment Select: Initial Level of Consciousness: 0=Alert (0), Level of Consciousness- Questions: 0=Answers both month/age (0), LOC Commands: 0=Performs both tasks (0), Gaze: Normal (0), Visual Mcdermott: 2=Complete hemianopia (2), Facial Movement (Facial Paresis): 0=Normal symmetrical mnt (0), Motor Function-Arms Right: 0=No drift (0), Motor Function-Arms Left: 0=No drift (0), Motor Function-Legs Right: 0=No drift (0), Motor Function-Legs Left: 0=No drift (0), Limb Ataxia: 0=Absent (0), Sensory: 0=Normal:no loss (0), Best Language: 0=No aphasia (0), Dysarthria: 0=Normal (0), Extinction & Inattention: 0=No abnormality (0), Total: 2 Stroke Thrombolytic Exclusion TPA Contraindication: Yes (presented >6 hours after symptoms started) IV - TPa Received IV - TPa Procedure Performed?: No Progress/Results/Core Measures Results/Orders Lab Results Laboratory Tests Test 07/07/22 20:00 07/07/22 20:16 07/07/22 20:28 07/07/22 20:56 Range/Units Urine Color YELLOW Urine Clarity CLEAR Urine pH 6.5 5-9 Urine Specific [place] <=1.005 1.016-1.022 Urine Protein NEGATIVE NEGATIVE Urine Glucose (UA) NEGATIVE NEGATIVE Urine Ketones NEGATIVE NEGATIVE Urine Nitrite NEGATIVE NEGATIVE Urine Bilirubin NEGATIVE NEGATIVE Urine Urobilinogen 0.2 < = 1.0 MG/DL Urine Leukocyte Esterase NEGATIVE NEGATIVE Urine RBC (Auto) NEGATIVE NEGATIVE Urine RBC NONE /HPF Urine WBC RARE /HPF Urine Squamous Epithelial Cells NONE /HPF Urine Renal Epithelial Cells NONE /HPF Urine Crystals NONE /LPF Urine Bacteria NEGATIVE /HPF Urine Casts NONE /LPF Urine Mucus NEGATIVE /LPF Urine Culture Indicated NO White Blood Count 9.7 4.3-11.0 10^3/uL Red Blood Count 4.70 3.80-5.11 10^6/uL Hemoglobin 15.0 11.5-16.0 g/dL Hematocrit 46 35-52 % Mean Corpuscular Volume 99 80-99 fL Mean Corpuscular Hemoglobin 32 25-34 pg Mean Corpuscular Hemoglobin Concent 32 32-36 g/dL Red Cell Distribution Width 12.6 10.0-14.5 % Platelet Count 250 130-400 10^3/uL Mean Platelet Volume 9.9 9.0-12.2 fL Immature Granulocyte % (Auto) 0 % Neutrophils (%) (Auto) 73 42-75 % Lymphocytes (%) (Auto) 19 12-44 % Monocytes (%) (Auto) 6 0-12 % Eosinophils (%) (Auto) 1 0-10 % Basophils (%) (Auto) 0 0-10 % Neutrophils # (Auto) 7.1 1.8-7.8 10^3/uL Lymphocytes # (Auto) 1.8 1.0-4.0 10^3/uL Monocytes # (Auto) 0.6 0.0-1.0 10^3/uL Eosinophils # (Auto) 0.1 0.0-0.3 10^3/uL Basophils # (Auto) 0.0 0.0-0.1 10^3/uL Immature Granulocyte # (Auto) 0.0 0.0-0.1 10^3/uL Prothrombin Time 12.9 12.2-14.7 SEC INR Comment 0.9 0.8-1.4 Activated Partial Thromboplast Time 30 24-35 SEC Sodium Level 143 135-145 MMOL/L Potassium Level 4.0 3.6-5.0 MMOL/L Chloride Level 108 H 98-107 MMOL/L Carbon Dioxide Level 21 21-32 MMOL/L Anion Gap 14 5-14 MMOL/L Blood Urea Nitrogen 29 H 7-18 MG/DL Creatinine 0.83 0.60-1.30 MG/DL Estimat Glomerular Filtration Rate 86 BUN/Creatinine Ratio 35 Glucose Level 104 70-105 MG/DL Calcium Level 9.9 8.5-10.1 MG/DL Corrected Calcium 8.5-10.1 MG/DL Total Bilirubin 0.3 0.1-1.0 MG/DL Aspartate Amino Transf (AST/SGOT) 31 5-34 U/L Alanine Aminotransferase (ALT/SGPT) 27 0-55 U/L Alkaline Phosphatase 79 40-136 U/L Troponin I < 0.028 <0.028 NG/ML Total Protein 8.1 6.4-8.2 GM/DL Albumin 4.9 H 3.2-4.5 GM/DL Glucometer 111 H 70-110 MG/DL Urine Opiates Screen NEGATIVE NEGATIVE Urine Oxycodone Screen NEGATIVE NEGATIVE Urine Methadone Screen NEGATIVE NEGATIVE Urine Propoxyphene Screen NEGATIVE NEGATIVE Urine Barbiturates Screen NEGATIVE NEGATIVE Ur Tricyclic Antidepressants Screen NEGATIVE NEGATIVE Urine Phencyclidine Screen NEGATIVE NEGATIVE Urine Amphetamines Screen NEGATIVE NEGATIVE Urine Methamphetamines Screen NEGATIVE NEGATIVE Urine Benzodiazepines Screen NEGATIVE NEGATIVE Urine Cocaine Screen NEGATIVE NEGATIVE Urine Cannabinoids Screen NEGATIVE NEGATIVE My Orders Orders - ANGEL LUIS RUSS MD Cbc With Automated Diff (07/07/22 20:21) Protime With Inr (07/07/22 20:21) Partial Thromboplastin Time (07/07/22 20:21) Comprehensive Metabolic Panel (07/07/22 20:21) Troponin I Elena (07/07/22 20:21) Ua Culture If Indicated (07/07/22 20:21) Chest 1 View, Ap/Pa Only (07/07/22 20:21) Ekg Tracing (07/07/22 20:21) Accucheck Stat ONCE (07/07/22 20:21) Ed Iv/Invasive Line Start (07/07/22 20:21) Ed Iv/Invasive Line Start (07/07/22 20:21) Vital Signs Stroke Patient Q15M (07/07/22 20:21) Ct Head Wo-R/O Stroke (07/07/22 20:21) Monitor-Rhythm Ecg Trace Only (07/07/22 20:21) Dysphagia Screening Tool Q10MX1 (07/07/22 20:21) Amlodipine Tablet (Norvasc Tablet) (07/07/22 20:30) Losartan Tablet (Cozaar Tablet) (07/07/22 20:30) Ct Angio Head/Neck (07/07/22 20:51) Iohexol Injection (Omnipaque 350 Mg/Ml 1 (07/07/22 21:00) Ns (Ivpb) (Sodium Chloride 0.9% Ivpb Bag (07/07/22 21:00) Drug Screen Stat (Urine) (07/07/22 20:56) Lorazepam Tablet (Ativan Tablet) (07/07/22 21:45) Levetiracetam Tablet (Keppra Tablet) (07/07/22 21:45) Medications Given in ED Current Medications Medications Dose Ordered Sig/Dereje Route Start Time Stop Time Status Last Admin Dose Admin Amlodipine Besylate 10 mg ONCE ONCE PO 07/07/22 20:30 07/07/22 20:31 DC 07/07/22 21:31 10 MG Iohexol 100 ml ONCE ONCE IV 07/07/22 21:00 07/07/22 21:01 DC 07/07/22 21:08 75 ML Sodium Chloride 100 ml ONCE ONCE IV 07/07/22 21:00 07/07/22 21:01 DC 07/07/22 21:08 70 ML Vital Signs/I&O 07/07/22 20:12 Temp 36.6 Pulse 105 Resp 18 B/P (MAP) 184/111 (135) Pulse Ox 96 O2 Delivery Room Air Blood Pressure Mean: 135 Progress Progress Note : Progress Note 51yoF presenting for left sided vision changes. ABCs intact and VSS on presenta tion although very hypertensive with initial pressure 180/110's. NIH was 2 for the hemianopsia. Patient presented well over 6 hours after symptoms and not a TPA candidate. CT head with no significant findings acutely. Labs unremarkable essentially and do not explain her symptoms. I contacted stroke and discussed the case with the neurologist. They recommended getting a CTA head and neck tonight followed by an MRI in the morning (PRES is on the differential as well as stroke). They recommended gradual reduction in blood pressure. Repeat pressure before intervention was 150's/100. Patient given her home dose amlodipine. I contacted Dr. De Paz who will admit the patient to the ICU for further evaluation and management under observation status. I then contacted the ICU physician for signout. Initial ECG Impression Date: Jul 07, 2022 Initial ECG Impression Time: 20:24 Initial ECG Rate: 102 Initial ECG Rhythm: S.Tach Comment Narrow QRS, normal axis, no significant ST changes or T wave abnormalities Diagnostic Imaging Diagonstic Imaging: Xray (chest), CT (head without, CTA head and neck) Comments NAME: SANDRA VILLARREAL [facility] REC#: [id number] PT STATUS: REG ER : 1970 PHYSICIAN: ANGEL LUIS RUSS MD ADMIT DATE: 07/07/22/ER Draft Date of Exam:07/07/22 CHEST 1 VIEW, AP/PA ONLY INDICATION: Loss of balance and visual disturbance. AP views of the chest are obtained. FINDINGS: Heart size and pulmonary vascularity are within normal limits, and the lungs are clear, bilaterally. IMPRESSION: Unremarkable chest. Dictated on workstation # [id number] Dict: 07/07/222044 Trans: 07/07/222047 [facility] [id number] Interpreted by: NEHEMIAS FAUST MD Electronically signed by: [facility]. [place], [place] NAME: SANDRA VILLARREAL [facility] REC#: [id number] PT STATUS: REG ER : 1970 PHYSICIAN: ANGEL LUIS RUSS MD ADMIT DATE: 07/07/22/ER Draft Date of Exam:07/07/22 CT HEAD WO-R/O STROKE PROCEDURE: CT head wo r/o stroke. TECHNIQUE: Multiple contiguous axial images were obtained through the brain without the use of intravenous contrast. Auto Exposure Controls were utilized during the CT exam to meet ALARA standards for radiation dose reduction. INDICATION: Homonymous hemianopsia on the left. COMPARISON: 03/11/2022 The ventricles and sulci are within normal limits for size. There is artifact from apparent aneurysm coiling along the cavernous sinuses bilaterally and just posterior to clivus. There are probable stents in the distal right internal carotid artery and the basilar artery. There is no evidence of hemorrhage. The globes appear to be intact however the lenses are deviated toward the left. IMPRESSION: Leftward gaze is noted with previous interventions in the distal carotid and basilar artery as well as along the lateral aspects of cavernous sinuses. There is however no CT evidence of acute intracranial abnormality. Dictated on workstation # [id number] Dict: 07/07/222040 Trans: 07/07/222046 [facility] [id number] Interpreted by: NEHEMIAS FAUST MD Electronically signed by: Departure Impression Primary Impression: Homonymous hemianopia Qualified Codes: H53.462 - Homonymous bilateral field defects, left side Additional Impression: Stroke Qualified Codes: I63.89 - Other cerebral infarction Disposition: ADMITTED INPATIENT Condition: Stable Admissions Decision to Admit Reason: Admit from ER (General) Decision to Admit/Date: Jul 07, 2022 Time/Decision to Admit Time: 21:35 Departure-Patient Inst. Referrals: NO,LOCAL PHYSICIAN (PCP/Family) Primary Care Physician ANGEL LUIS RUSS MD Jul 07, 2022 20:30
--- NOTE | 2022-07-07 20:48 | Diagnostic Imaging Report ---
PROCEDURE: CT head wo r/o stroke. TECHNIQUE: Multiple contiguous axial images were obtained through the brain without the use of intravenous contrast. Auto Exposure Controls were utilized during the CT exam to meet ALARA standards for radiation dose reduction. INDICATION: Homonymous hemianopsia on the left. COMPARISON: 03/11/2022 The ventricles and sulci are within normal limits for size. There is artifact from apparent aneurysm coiling along the cavernous sinuses bilaterally and just posterior to clivus. There are probable stents in the distal right internal carotid artery and the basilar artery. There is no evidence of hemorrhage. The globes appear to be intact however the lenses are deviated toward the left. IMPRESSION: Leftward gaze is noted with previous interventions in the distal carotid and basilar artery as well as along the lateral aspects of cavernous sinuses. There is however no CT evidence of acute intracranial abnormality. Dictated by: Dictated on workstation # [id number]
--- NOTE | 2022-07-07 20:48 | Diagnostic Imaging Report ---
INDICATION: Loss of balance and visual disturbance. AP views of the chest are obtained. FINDINGS: Heart size and pulmonary vascularity are within normal limits, and the lungs are clear, bilaterally. IMPRESSION: Unremarkable chest. Dictated by: Dictated on workstation # [id number]
[2022-07-07 20:50] LABS: BASOPHILS % (AUTO) 0 % (0-10); EOSINOPHILS # (AUTO) 0.1 10^3/uL (0.0-0.3); EOSINOPHILS % (AUTO) 1 % (0-10); HEMATOCRIT 46 % (35-52); LYMPHOCYTES # (AUTO) 1.8 10^3/uL (1.0-4.0); LYMPHOCYTES % (AUTO) 19 % (12-44); MEAN CORPUSCULAR HEMOGLOBIN 32 pg (25-34); MEAN CORPUSCULAR HGB CONC 32 g/dL (32-36); MEAN CORPUSCULAR VOLUME 99 fL (80-99); MEAN PLATELET VOLUME 9.9 fL (9.0-12.2); MONOCYTES # (AUTO) 0.6 10^3/uL (0.0-1.0); MONOCYTES % (AUTO) 6 % (0-12); NEUTROPHILS # (AUTO) 7.1 10^3/uL (1.8-7.8); NEUTROPHILS % (AUTO) 73 % (42-75); PLATELET COUNT 250 10^3/uL (130-400); WHITE BLOOD COUNT 9.7 10^3/uL (4.3-11.0)
[2022-07-07 20:58] LABS: INR 0.9 (0.8-1.4); PROTHROMBIN TIME PATIENT 12.9 SEC (12.2-14.7)
[2022-07-07 21:00] LABS: BILIRUBIN,URINE NEGATIVE (NEGATIVE); CLARITY,URINE CLEAR; COLOR,URINE YELLOW; GLUCOSE, URINE (UA) NEGATIVE (NEGATIVE); KETONES,URINE NEGATIVE (NEGATIVE); LEUKOCYTE ESTERASE ,URINE NEGATIVE (NEGATIVE); NITRITE,URINE NEGATIVE (NEGATIVE); PH,URINE 6.5 (5-9); PROTEIN,URINE NEGATIVE (NEGATIVE)
[2022-07-07] MEDS ORDERED: NS 100 ML (IVPB) BAG IV ONE (21:00)
[2022-07-07] MEDS ORDERED: IOHEXOL 350 MG/ML 100 ML (OMNIPAQUE 350) VIAL IV ONE (21:00)
[2022-07-07 21:01] LABS: ALANINE AMINOTRANSFERASE 27 U/L (0-55); ALBUMIN 4.9 GM/DL (3.2-4.5); ALKALINE PHOSPHATASE 79 U/L (40-136); BILIRUBIN,TOTAL 0.3 MG/DL (0.1-1.0); BUN/CREATININE RATIO 35; CALCIUM 9.9 MG/DL (8.5-10.1); CARBON DIOXIDE 21 MMOL/L (21-32); CHLORIDE 108 MMOL/L (98-107); CREATININE SERUM 0.83 MG/DL (0.60-1.30); GFR ESTIMATED 86; GLUCOSE 104 MG/DL (70-105); SODIUM 143 MMOL/L (135-145); TOTAL PROTEIN 8.1 GM/DL (6.4-8.2)
[2022-07-07 21:09] LABS: BACTERIA,URINE NEGATIVE /HPF; WBC,URINE RARE /HPF
[2022-07-07 21:11] LABS: AMPHETAMINE SCREEN, URINE NEGATIVE (NEGATIVE); BARBITURATE SCREEN URINE NEGATIVE (NEGATIVE); BENZODIAZEPINES SCREEN URINE NEGATIVE (NEGATIVE); CANNABINOID SCREEN, URINE NEGATIVE (NEGATIVE); COCAINE SCREEN URINE NEGATIVE (NEGATIVE); METHADONE STAT NEGATIVE (NEGATIVE); OPIATE SCREEN URINE NEGATIVE (NEGATIVE); OXYCODONE STAT NEGATIVE (NEGATIVE); PROPOXYPHENE STAT NEGATIVE (NEGATIVE); TRICYCLIC ANTIDEPRESSANTS SCRE NEGATIVE (NEGATIVE)
[2022-07-07] MEDS ORDERED: LORazepam 0.5 MG (ATIVAN) TABLET PO ONE (21:45)
--- NOTE | 2022-07-07 21:52 | Diagnostic Imaging Report ---
PROCEDURE: CT angiography of the head and CT angiography of the neck with and without contrast. TECHNIQUE: Contiguous noncontrast images were obtained from the skull base through the vertex. After intravenous contrast administration, helical CT angiography of the neck was performed. Source data was reformatted into 3D MIP projections. Delayed post contrast acquisition was also obtained. Auto Exposure Controls were utilized during the CT exam to meet ALARA standards for radiation dose reduction. INDICATION: Visual disturbance COMPARISON: 03/11/2022, FINDINGS: There is direct origin of common carotid arteries from the arch with a variant right subclavian artery. Mild atherosclerotic disease is present at the origins of the great vessels arising from the arch. There is a stable low-density focus in the right lobe the thyroid gland. The carotid arteries are widely patent in the neck. Atherosclerotic calcification is seen within the carotid bulbs, greater on the left without significant stenosis. Internal carotid arteries are patent throughout the neck to the level of cavernous sinuses. Both vertebral arteries are also patent without stenosis or occlusion. There may be stent within the basilar artery. Within the head, there is artifact from embolic coils at the level of bilateral distal internal carotid arteries. There is however good opacification of anterior, middle and posterior cerebral arteries bilaterally. No definite aneurysm or vascular malformation is identified. There is no abnormal contrast enhancement detected. IMPRESSION: Treated intracranial aneurysms without evidence of new aneurysm, vascular malformation or occlusion. No stenosis or large vessel occlusion is appreciated. There is mild atherosclerosis within the great vessels of the neck, however, no stenosis, occlusion or other acute abnormality is identified. Dictated by: Dictated on workstation # [id number]
--- NOTE | 2022-07-07 22:25 | Tele-ICU Progress Note ---
Subjective Date Seen by a Provider: Jul 07, 2022 Subjective/Events-last exam Thank you for asking us to see this patient for L homonymous hemianopsia, R/O CVA. Recent events: Initial BP 180/110 PMH: Similar event in February, Multiple coiled aneurysms, HTN, TIA/CVA. SH: smoking history: current FH: Non-contributory ROS: as in HPI. PE: VSS BP 150/100 RR O2 sat 96% on RA. HEENT: No obvious masses, adenopathy or JVD. Chest: clear to auscultation. CV: RRR S1 S2 No murmur or added sounds. Abd: Non-tender. Bowel sounds Y. : Unremarkable. 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 No obvious focal findings except L Homon. hemianopsia. Extremities: No edema. Capillary refill < 3 seconds. Skin: unremarkable. Results: Elevated BUN 29, BG 111. VCR hyperinflated, clear hines. CTH neg. A/P: Critical Care: critically ill patient. Monitor neuro status. Keep SBP 150+. Cont norvasc, keppra. MRI in AM. Discussed with RN Esther and ER . Asked RN to reach out to eICU if any questions or concerns later. Time spent with patient/family/coordination of care with other health professionals (mins): 25 Sepsis Event Evaluation Height, Weight, BMI Height: '" Weight: lbs. oz. kg; 23.52 BMI Method: Exam Exam Patient acknowledged, consented, and participated in this virtual visit which was conducted using real time audio/video Vital Signs Date Time Temp Pulse Resp B/P (MAP) Pulse Ox O2 Delivery O2 Flow Rate FiO2 07/07/22 22:07 36.6 103 18 140/100 94 Room Air 07/07/22 20:12 36.6 105 18 184/111 (135) 96 Room Air Height & Weight Height: '" Weight: lbs. oz. kg; 23.52 BMI Method: General Appearance: Thin Respiratory: Lungs Clear Cardiovascular: No Edema (See free text.) Capillary Refill: Less Than 3 Seconds Peripheral Pulses: 1+ Dorsalis Pedis (R), 1+ Left Dors-Pedis (L) Gastrointestinal: normal bowel sounds, non tender, soft; No distended, No g uarding, No rebound Results Lab Laboratory Tests 07/07/22 20:16 Assessment/Plan Assessment/Plan See free text Critical Care: Critically Ill Patient ADRYAN REYES MD Jul 07, 2022 22:25
[2022-07-07 23:14] VITALS: BP 184/111
[2022-07-07] MEDS ORDERED: LORazepam 0.5 MG (ATIVAN) TABLET PO PRN (23:15)
[2022-07-07] MEDS ORDERED: ACETAMINOPHEN 500 MG TAB (TYLENOL) PO PRN (23:15)
[2022-07-07] MEDS ORDERED: ONDANSETRON 4 MG/2 ML (SDV) Z0FRAN IV PRN (23:15)
[2022-07-07] MEDS ORDERED: MELATONIN 3 MG TABLET PO PRN (23:15)
[2022-07-07] MEDS ORDERED: RT-ALBUTEROL SULF 2.5 MG/3 ML PRE-MIX VIAL INH PRN (23:30)
[2022-07-08] MEDS ORDERED: NS IV 1000 ML 1,000 ML ONE (01:39)
[2022-07-08] MEDS ORDERED: NS IV 1000 ML 1,000 ML IV SCH ×2 (01:45)
[2022-07-08] MEDS ORDERED: NOREPINEPHRINE 8 MG/250 ML 250 ML IV SCH (04:15)
[2022-07-08 05:13] LABS: BASOPHILS % (AUTO) 0 % (0-10); EOSINOPHILS # (AUTO) 0.1 10^3/uL (0.0-0.3); EOSINOPHILS % (AUTO) 2 % (0-10); HEMATOCRIT 41 % (35-52); LYMPHOCYTES # (AUTO) 1.4 10^3/uL (1.0-4.0); LYMPHOCYTES % (AUTO) 21 % (12-44); MEAN CORPUSCULAR HEMOGLOBIN 32 pg (25-34); MEAN CORPUSCULAR HGB CONC 32 g/dL (32-36); MEAN CORPUSCULAR VOLUME 98 fL (80-99); MEAN PLATELET VOLUME 10.2 fL (9.0-12.2); MONOCYTES # (AUTO) 0.4 10^3/uL (0.0-1.0); MONOCYTES % (AUTO) 6 % (0-12); NEUTROPHILS # (AUTO) 4.6 10^3/uL (1.8-7.8); NEUTROPHILS % (AUTO) 70 % (42-75); PLATELET COUNT 191 10^3/uL (130-400); WHITE BLOOD COUNT 6.6 10^3/uL (4.3-11.0)
[2022-07-08] MEDS: CATHETER FLUSH 10 ML SYR IVP SCH ×2 (05:30→15:26)
[2022-07-08 05:44] LABS: ALBUMIN 3.9 GM/DL (3.2-4.5); BILIRUBIN,TOTAL 0.5 MG/DL (0.1-1.0); CALCIUM 8.7 MG/DL (8.5-10.1); CREATININE SERUM 0.58 MG/DL (0.60-1.30); MAGNESIUM 1.8 MG/DL (1.6-2.4); POTASSIUM 3.8 MMOL/L (3.6-5.0); TOTAL PROTEIN 6.3 GM/DL (6.4-8.2)
[2022-07-08] MEDS ORDERED: meTOprolol TARTRATE 50 MG (LOPRESSOR) TAB PO SCH (09:00)
[2022-07-08] MEDS ORDERED: ASPIRIN E.C. 81 MG (ECOTRIN) TAB PO SCH (09:00)
[2022-07-08] MEDS ORDERED: amLODIPine 10 MG (NORVASC) TAB PO SCH (09:00)
--- NOTE | 2022-07-08 10:07 | Tele-ICU Consult ---
History of Present Illness History of Present Illness Date Seen by Provider: Jul 08, 2022 Time Seen by Provider: 09:35 Date of Admission (Tele-ICU Physician , consultation as per request of PCP Service provided via interactive audio and video telecommunications E-CARE system to a patient admitted to ICU bed in [facility]. Available chart/ vitals / labs / Images reviewed H&P is from ER notes Patient's information available about PMH, Shx, Fhx allergy reviewed inEMR. ROS as per chart and RN report Seen by Dr Green last night Now in ICU, hemodynamically stable Video assessment done using teleICU camera, rest of exam as per RN Discussed with RN. Consultants: Hospital course: A/P Unspecified amblyopia, left eye- presumed CVA -H/o brain aneurysm status post coiling several years ago and recent stroke versus PRES in February of this year - SBP 150+ as per neurology consult advised ( initial pressure 180/110's. - neurochecks - keppra. -MRI pending ( recent MRI with right sided occipital stroke vs PRES 02/2022) Hypotension ( relative ) - levo added last night for SBP 120s to maintain perfusion - after given her home dose amlodipine. HTN h/o and on admission - hold on BP meds now Lines : , (Central Line Necessity Reviewed) Cerna: OG: Nutrition: Analgesia: Anxiety/ delirium VTE Prophylaxis: scd Stress Ulcer Prophylaxis: Glycemic Control: Plans in collaboration with bedside consultants and IM MDs. Discussed with RN to reach out if any questions or concerns A total of 25 minutes of critical care time was devoted to this patient today, required to treat and/or prevent further deterioration of critical care condition ( as above ) . I am remotely monitoring this patient from another state. I am unable to do the bedside exam, and history/physical and pertinent information is taken from other notes in the computer and bedside staff. . Allergies and Home Medications Allergies Coded Allergies: bee venom protein (honey bee) (Verified Allergy, Unknown, Anaphylaxis, 03/11/22) Home Medications Acetaminophen 500 Mg Tablet, 500-1,000 MG PO Q8H PRN for PAIN-MILD (1-4), (Reported) Amlodipine Besylate 10 Mg Tablet, 10 MG PO DAILY, (Reported) LAST FILLED 02-14-2022 #90/90 DAY SUPPLY Aspirin 81 Mg Tablet.dr, 81 MG PO DAILY, (Reported) Cetirizine HCl 10 Mg Tablet, 10 MG PO DAILY PRN for ALLERGY SYMPTOMS, (Reported) Cholecalciferol (Vitamin D3) 125 Mcg (5000 Unit) Tablet, 125 MCG PO DAILY, (Reported) Magnesium Citrate 125 Mg Capsule, 125 MG PO 1700, (Reported) Metoprolol Tartrate 50 Mg Tablet, 50 MG PO BID, (Reported) LAST FILLED 02-14-2022 #180/90 DAY SUPPLY Telmisartan 20 Mg Tablet, 20 MG PO DAILY, (Reported) LAST FILLED 02-14-2022 #90/90 DAY SUPPLY Ubidecarenone 100 Mg Capsule, 200 MG PO DAILY, (Reported) Past Medical/Social/Family Hx Patient Social History Tobacco Use?: Yes Tobacco type used: Cigarettes Smoking Status: Current Everyday Smoker Use of E-Cig and/or Vaping dev: No Substance use?: No Alcohol Use?: Yes Alcohol type: Beer Alcohol Frequency: Daily Pt stated abuse/neglect: No Immunizations Up To Date Influenza Vaccine Up-to-Date: No; Not Current First/Initial COVID19 Vaccinat: 2020 Second COVID19 Vaccination [facility]: [facility] DATE Tetanus Booster (TDap): Less Than 5 Years Current Status status: No status: No Advance Directives: No Communicates: Verbally Primary Language: [place] Preferred Spoken Language: [place] Is interpretation needed?: No Sensory deficits: Vision impairment Implanted or Applied Medical D: None Review of Systems Constitutional: see HPI Focused Exam Height, Weight, BMI Height: '" Weight: lbs. oz. kg; 23.71 BMI Method: Exam Exam Patient acknowledged, consented, and participated in this virtual visit which was conducted using real time audio/video Vital Signs Date Time Temp Pulse Resp B/P (MAP) Pulse Ox O2 Delivery O2 Flow Rate FiO2 07/08/22 09:00 62 12 133/70 (91) 97 Room Air 07/08/22 08:00 84 21 150/87 (108) 99 Room Air 07/08/22 08:00 93 Room Air 07/08/22 08:00 84 07/08/22 07:00 36.9 07/08/22 07:00 62 22 156/87 (110) 95 Room Air 07/08/22 06:00 63 23 139/86 (110) 93 Room Air 07/08/22 05:00 66 21 127/77 (94) 91 Room Air 07/08/22 04:52 70 115/88 07/08/22 04:30 89 30 105/61 (77) 97 Room Air 07/08/22 04:20 37.3 07/08/22 04:19 93 Room Air 07/08/22 04:00 71 21 92/52 (69) 93 Room Air 07/08/22 03:00 79 10 115/74 (89) 96 Room Air 07/08/22 02:00 79 21 116/82 (95) 93 Room Air 07/08/22 01:00 86 24 114/77 (93) 92 Room Air 07/08/22 01:00 86 07/08/22 00:30 79 19 119/80 (92) 94 Room Air 07/08/22 00:15 86 24 117/79 (93) 90 Room Air 07/08/22 00:00 81 23 111/63 (85) 93 Room Air 07/08/22 00:00 97 Room Air 07/07/22 23:45 80 24 120/73 (94) 92 Room Air 07/07/22 23:30 84 16 113/70 (87) 96 Room Air 07/07/22 23:15 86 24 113/73 (91) 94 Room Air 07/07/22 23:14 36.6 105 96 21 07/07/22 23:00 96 19 123/83 (95) 93 Room Air 07/07/22 22:45 93 07/07/22 22:44 92 8 122/74 (93) 94 Room Air 07/07/22 22:38 98 28 127/93 (108) 94 Room Air 07/07/22 22:35 37.1 96 22 123/89 (100) 94 Room Air 07/07/22 22:30 96 Room Air 07/07/22 22:07 36.6 103 18 140/100 94 Room Air 07/07/22 20:12 36.6 105 18 184/111 (135) 96 Room Air I & O 07/08/22 07:00 Intake Total 1300 ml Output Total 1400 ml Balance -100 ml Height & Weight Height: '" Weight: lbs. oz. kg; 23.71 BMI Method: General Appearance: No Apparent Distress, Thin Respiratory: Lungs Clear Cardiovascular: No Edema (See free text.) Capillary Refill: Less Than 3 Seconds Peripheral Pulses: 1+ Dorsalis Pedis (R), 1+ Left Dors-Pedis (L) Gastrointestinal: normal bowel sounds, non tender, soft; No distended, No guarding, No rebound Results Lab Laboratory Tests 07/07/22 20:16 07/08/22 04:20 Assessment/Plan Assessment/Plan 1 CADEN CHAVEZ MD Jul 08, 2022 10:07
--- NOTE | 2022-07-08 10:29 | Physical Therapy Evaluation ---
PT Evaluation-General Medical Diagnosis Admission Date Jul 07, 2022 at 21:28 Medical Diagnosis: Stroke-Like Symptoms Onset Date: Jul 07, 2022 Therapy Diagnosis Therapy Diagnosis: No Impairments Precautions Precautions/Isolations: Fall Prevention, Standard Precautions Weight Bear Status Right Lower Extremity: Right Full Weight Bearing Left Lower Extremity: Left Full Weight Bearing Referral Physician: Sharyn Reason for Referral: Evaluation/Treatment Medical History Additional Medical History Surgeries: Yes (Coiling aneurysm and brain), History of stroke and TIA Reviewed History: Yes Social History Home: Single Level Current Living Status: Children Entry Into Home: Stairs With Railing PT Steps Into Home: 3 Prior Prior Level of Function SCALE: Activities may be completed with or without assistive devices. 3-Bfoovjkwge-htxhklx completes the activity by him/herself with no assistance from a helper. 5-Set-up or Clean-up Assistance-helper sets up or cleans up; patient completes activity. [place] assists only prior to or following the activity. 4-Supervision or Touching Assistance-helper provides verbal cues and/or touching/steadying and/or contact guard assistance as patient completes activity. Assistance may be provided throughout the activity or intermittently. 3-Partial/Moderate Assistance-helper does LESS THAN HALF the effort. [place] lifts, holds or supports trunk or limbs, but provides less than half the effort. 2-Substantial/Maximal Assistance-helper does MORE THAN HALF the effort. [place] lifts or holds trunk or limbs and provides more than half the effort. 6-Imnubsuey-pmtwsg does ALL the effort. Patient does none of the effort to complete the activity. Or, the assistance of 2 or more helpers is required for the patient to complete the activity. If activity was not attempted, code reason: 7-Patient Refused. 9-Not Applicable-not attempted and the patient did not perform the activity before the current illness, exacerbation or injury. 10-Not Attempted due to Environmental Limitations-(lack of equipment, weather restraints, etc.). 88-Not Attempted due to Medical Conditions or Safety Concerns. Bed Mobility: 6 Transfers (B,C,W/C): 6 Gait: 6 Stairs: 6 Indoor Mobility (Ambulation): Independent Stairs: Independent Prior Devices Use: None PT Evaluation-Current Subjective Patient in bed pre-tx, reports no pain, agrees to PT. Pt/Family Goals Be Independent Objective Patient Orientation: Person, Place, Situation ROM/Strength ROM Lower Extremities WNL Strength Lower Extremities BLE grossly 5/5 Neuromuscular (Tone, Coordination, Reflexes) Coordination intact Sensory Vision: Functional Hearing: Functional Sensation Right Lower Extremit: Intact Sensation Left Lower Extremity: Intact Transfers Roll Left to Right (QC): 6 Sit to Lying (QC): 6 Lying to Sitting/Side of Bed(Q: 6 Sit to Stand (QC): 6 Gait Does the Patient Walk?: Yes Mode of Locomotion: Walk Anticipated Mode of Locomotion: Walk Walk 10 feet (QC): 6 Walk 50 ft with 2 Turns(QC): 6 Distance: 50' Gait Assistive Device: None Comments/Gait Description Patient walks with normal gait speed, foot clearance, and step length without the need of an assistive device. Balance Sitting Static: Normal Sitting Dynamic: Normal Standing Static: Normal Standing Dynamic: Normal Treatment Ambulation Assessment/Needs Patient independent on bed mobility, ambulation, and transfers. Patient does not require an assistive device during ambulation and shows no impairments. Patient to be DC from PT. Rehab Potential: Good PT Plan Problem List None Treatment/Plan Treatment Plan: Discontinue PT Treatment Duration: Jul 08, 2022 Frequency: Estimated Hrs Per Day: Other Patient and/or Family Agrees t: Yes Patient to be DC from therapy, independent on everything. Safety Risks/Education Patient Education: Gait Training, Transfer Techniques, Correct Positioning, Sa fety Issues Teaching Recipient: Patient Teaching Methods: Demonstration Response to Teaching: Verbalize Understanding, Return Demonstration Discharge Recommendations Plan Patient to be DC from PT, shows no impairments. Therapy Discharge Recommendati: Home & Family Time Time In: 1012 Time Out: 1020 DATE: Jul 08, 2022 Total Billed Treatment Time: 8 Total Billed Treatment 1 visit EVL 8min EZEQUIEL BAKER PT Jul 08, 2022 10:29
[2022-07-08] MEDS ORDERED: GADOTERATE 0.5 MMOL/ML (CLARISCAN) 15 ML VIAL IV ONE (11:00)
--- NOTE | 2022-07-08 11:33 | Occ Therapy Progress Note ---
Therapy Progress Note OT orders received and chart reviewed. OT visited with pt who indicates she is at her PLOF with ADLs and functional mobility and has no concerns upon discharging. Pt transferred from MRI w/c to bed independently, no AD. Pt reports IND with eating, dressing, toileting and other ADLs. No skilled OT services indicated at this time, as pt is independent with ADLs and at PLOF. D/C from OT. 1, visit 1130 GOMEZ NOVAK OT Jul 08, 2022 11:33
--- NOTE | 2022-07-08 12:14 | Diagnostic Imaging Report ---
CLINICAL INDICATION: Patient has been having visual disturbances. Patient had aneurysm repairs. EXAM: MRI of the brain/ IACs performed without and with 14 cc of Clariscan IV contrast. Sequences include sagittal T1 localizer, axial T2, axial FLAIR, axial T1, coronal gradient echo, DWI, ADC map, axial T1 thin, axial T2 thin, coronal T1 thin, axial T2 3D FIESTA, axial T1 post contrast whole brain, coronal T1 fat-sat post IV contrast whole brain, sagittal T1 post IV contrast whole brain, axial T1 post IV contrast thin fat sat, and coronal T1 post IV contrast thin. COMPARISONS: CT angiogram of the head/neck dated 07/07/2022. FINDINGS: TEMPORAL BONE STRUCTURES: There is a minimal amount of high T2 signal involving the left mastoid air cells. The internal auditory canal, otic capsule, middle ear, and temporal bone structures have normal anatomic appearance and are unremarkable. There is no abnormal fluid in the mastoid air cells seen. The visualized nerves VII and VIII within the IACs bilaterally and cisternal portions have normal appearance. CISTERNAL STRUCTURES: There is no cisternal mass seen. The remainder of the visualized cranial nerves in the basal cistern regions are unremarkable. BRAIN PARENCHYMA: There is an 8 mm nodular area of enhancement involving the right occipital lobe. There is abnormal hyperintense T2 signal involving the right occipital lobe area of enhancement, which correlates to the area of increased T2 signal on the comparison MRI of the brain. This area of hyperintense T2 signal has increased in the interim. There is a focal area of enhancement seen adjacent to the larger area of enhancement. There is a 2 mm focal area of enhancement involving the left parieto-occipital lobe region with minimal increased T2 signal in the region. There are no other areas of abnormal enhancement seen on this exam. There is mild confluent increased T2 signal involving the occipital lobes, which is otherwise stable. There is a focal area of high T2 signal involving the cortical portion of the left parieto-occipital lobe region. The known areas of aneurysm repair in the bilateral supraclinoid regions and the vascular stent in the basilar artery are not well seen on this exam and better seen on the comparison CT angiogram. There is no significant architectural distortion, midline shift, or herniation. There is no abnormal IV contrast enhancement or diffusion restriction signal changes. VENTRICLES: There is no hydrocephalus. VISUALIZED INTRACRANIAL VESSELS: Unremarkable as visualized. SKULL/ ORBITS: Unremarkable. VISUALIZED PARANASAL SINUSES: Unremarkable. IMPRESSION: 1: There are nodular areas of enhancement involving the right occipital lobe with increased hyperintense T2 signal involving the right occipital lobe region. These findings have progressed compared to prior MRI of the brain. This is concerning for metastatic disease or primary brain neoplasm. 2: There is a nonspecific roughly 2 mm nodular area of enhancement involving the left parieto-occipital region with focal increased T2 signal. Follow-up imaging is suggested. 3: There is no other acute intracranial finding. 4: There is minimal fluid involving the left mastoid air cells. Otherwise, unremarkable MRI of the internal auditory canals, temporal bone structures, and basal cisterns. Dictated by: Dictated on workstation # [id number]
--- NOTE | 2022-07-08 12:35 | Short Stay Summary ---
SILVERIOCHRISTOPHER 07/08/22 1234: History of Present Illness History of Present Illness Reason for visit/HPI Patient is a 51 year old woman admitted for observation from the ER for loss of balance and left-sided vision changes. She has a history of hypertension, brain aneurysm post-coiling, and recent stroke versus PRES (posterior reversible encephalopathy syndrome) in February of this year. She states that her symptoms are the same as what she experienced back in February. She states that her vision changes began as a yellow bar appearing in the periphery of her left eye. It then progressed to blue and red shapes appearing intermittently in her periphery prior to what she described as a dark bar, completely blocking out the outside of her left visual field. In addition, she describes seeing people out the corner of her eye that are not really there and a feeling that the room's furniture had been rearranged when nothing had changed position. This progression was accompanied by a loss of depth perception and difficulty maintaining balance. She takes a daily baby aspirin with no blood thinners. Initial BP was 184/111 on arrival. Initial head CT found no evidence of acute intracranial abnormality. Head CTA found no new aneurysm, vascular malformation, or occlusion with no acute abnormality identified. Tele-ICU consult recommends keeping SBP at 150+, but continue norvasc and keppra. She states that she is feeling completely normal this morning. Her vision has returned to normal. She denies weakness, nausea, vomiting, headaches, and dizziness. Date of Admission Jul 07, 2022 at 21:28 Date of Discharge 07/08/2022 Time Seen by Provider: 08:20 Attending Physician No,Local Physician Admitting Physician Admitting Physician: Lizbeth Prabhakar DO Attending Physician: Lizbeth Prabhakar DO Consult CADEN CHAVEZ MD, Tele-ICU Allergies and Home Medications Allergies Coded Allergies: bee venom protein (honey bee) (Verified Allergy, Unknown, Anaphylaxis, 03/11/22) Patient Home Medication List Home Medication List Reviewed: Yes Acetaminophen (Tylenol Extra Strength) 500 Mg Tablet, 500-1,000 MG PO Q8H PRN for PAIN-MILD (1-4), (Reported) Entered as Reported by: ROBERT PEARSON on 03/12/22 8530 Last Action: Reviewed Amlodipine Besylate (Amlodipine Besylate) 10 Mg Tablet, 10 MG PO DAILY, (Reported) Entered as Reported by: ROBERT PEARSON on 03/12/221158 Last Action: Reviewed Aspirin (Aspirin EC) 81 Mg Tablet., 81 MG PO DAILY, (Reported) Entered as Reported by: ROBERT PEARSON on 07/08/221535 Last Action: Reviewed Cetirizine HCl (Cetirizine HCl) 10 Mg Tablet, 10 MG PO DAILY PRN for ALLERGY SYMPTOMS, (Reported) Entered as Reported by: ROBERT PEARSON on 03/12/221158 Last Action: Reviewed Cholecalciferol (Vitamin D3) (Vitamin D3) 125 Mcg (5000 Unit) Tablet, 125 MCG PO DAILY, (Reported) Entered as Reported by: ROBERT PEARSON on 03/12/221158 Last Action: Reviewed Levetiracetam (Levetiracetam) 500 Mg Tablet, 500 MG PO BID Prescribed by: LIZBETH PRABHAKAR on 07/08/22 1646 Magnesium Citrate (Magnesium Citrate) 125 Mg Capsule, 125 MG PO 1700, (Reported) Entered as Reported by: ROBERT PEARSON on 07/08/221535 Last Action: Reviewed Metoprolol Tartrate (Metoprolol Tartrate) 50 Mg Tablet, 50 MG PO BID, (Reported) Entered as Reported by: ROBERT PEARSON on 03/12/221158 Last Action: Reviewed Telmisartan (Telmisartan) 20 Mg Tablet, 20 MG PO DAILY, (Reported) Entered as Reported by: ROBERT PEARSON on 03/12/221158 Last Action: Reviewed Ubidecarenone (Coq-10) 100 Mg Capsule, 200 MG PO DAILY, (Reported) Entered as Reported by: ROBERT PEARSON on 03/12/221158 Last Action: Reviewed Discontinued Medications Aspirin (Aspirin EC) 81 Mg Tablet., 81 MG PO DAILY Discontinued Reason: Duplicate Order Prescribed by: KEISHA CONTRERAS on 03/12/22 1257 Last Action: Discontinued Ibuprofen (Ibuprofen) 200 Mg Tablet, 400 MG PO Q8H PRN for PAIN-MILD (1-4), (Reported) Discontinued Reason: No Longer Taking Entered as Reported by: ROBERT PEARSON on 03/12/221158 Last Action: Discontinued Magnesium Oxide (Magnesium Oxide) 500 Mg Tablet, 500 MG PO DAILY, (Reported) Discontinued Reason: Prescription changed Entered as Reported by: ROBERT PEARSON on 03/12/22 115 Naproxen Sodium (Aleve) 220 Mg Tablet, 220 MG PO Q12H PRN for PAIN-MILD (1-4), (Reported) Discontinued Reason: No Longer Taking Entered as Reported by: ROBERT MICHEL on 03/12/221158 Last Action: Discontinued Past Ikitkpt-Pehpro-Duauyi Hx Patient Social History Employed/Student: employed Smoking Status: Current Everyday Smoker Have you traveled recently?: No Alcohol Use?: Yes Pt feels they are or have been: No Tobacco type used: Cigarettes Surgeries Yes (Coiling aneurysm and brain) Cardiovascular Hypertension Neurological Stroke (Possible stroke versus PRES) Family Medical History Significant Family History: No Pertinent Family Hx Review of Systems Constitutional: no symptoms reported, see HPI EENTM: see HPI, vision loss (Patient states that her vision loss has resolved); No hearing loss Respiratory: no symptoms reported, see HPI; No cough, No short of breath Cardiovascular: no symptoms reported; No chest pain, No palpitations, No syncope Gastrointestinal: no symptoms reported; No abdominal pain, No constipation, No diarrhea, No nausea, No vomiting Genitourinary: no symptoms reported; No dysuria, No frequency, No incontinence Musculoskeletal: no symptoms reported Skin: no symptoms reported Psychiatric/Neurological: See HPI; Denies Headache, Denies Numbness; Other (Loss of balance that has since resolved) Physical Exam Vital Signs Vital Signs - First Documented 07/07/22 07/07/22 20:12 23:14 Temp 36.6 Pulse 105 Resp 18 B/P (MAP) 184/111 (135) Pulse Ox 96 O2 Delivery Room Air FiO2 21 Capillary Refill : Less Than 3 Seconds Height, Weight, BMI Height: 170.2 Weight: 68.7 kg; 23.71 BMI Method: General Appearance: No Apparent Distress, WD/WN HEENT: PERRL/EOMI, Normal ENT Inspection Neck: Full Range of Motion, Normal Inspection, Non Tender, Supple; No Carotid Bruit, No JVD Respiratory: Chest Non Tender, Lungs Clear, Normal Breath Sounds, No Accessory Muscle Use, No Respiratory Distress Cardiovascular: Regular Rate, Rhythm, No Edema, No Gallop, No JVD, No Murmur, Normal Peripheral Pulses Gastrointestinal: Normal Bowel Sounds, Non Tender, Soft Back: Normal Inspection Extremity: Normal Capillary Refill, Normal Inspection, Non Tender Neurologic/Psychiatric: Alert, Oriented x3, Normal 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, 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 Norm as Tested; No Depressed Affect, No EOM Palsy, No Facial Droop, No Motor Weakness; Other (Minor horizontal nystagmus noted on EOM exam) Skin: Normal Color, Warm/Dry Lymphatic: No Adenopathy Clinical Quality Measures Admission Status Admission Dx Monocular photopsia Admission Status: Observation Stroke: Date of last known well: Jul 07, 2022 Time of last known well: 1400 Short Stay Diagnosis Discharge Diagnosis-Short Stay Admission Diagnosis: Homonymous hemianopia Monocular photopsia Hypertension History of brain aneurysm post-coiling History of stroke versus PRES Final Discharge Diagnosis: Homonymous hemianopia - resolved Monocular photopsia - resolved Hypertension History of brain aneurysm post-coiling History of stroke versus PRES MRI results suspicious for metastatic disease or primary brain neoplasm Conclusion Labs Laboratory Tests 07/07/22 20:00: Urine Color YELLOW, Urine Clarity CLEAR, Urine pH 6.5, Urine Specific [place] <=1.005, Urine Protein NEGATIVE, Urine Glucose (UA) NEGATIVE, Urine Ketones NEGATIVE, Urine Nitrite NEGATIVE, Urine Bilirubin NEGATIVE, Urine Urobilinogen 0.2, Urine Leukocyte Esterase NEGATIVE, Urine RBC (Auto) NEGATIVE, Urine RBC NONE, Urine WBC RARE, Urine Squamous Epithelial Cells NONE, Urine Renal Epithelial Cells NONE, Urine Crystals NONE, Urine Bacteria NEGATIVE, Urine Casts NONE, Urine Mucus NEGATIVE, Urine Culture Indicated NO 07/07/22 20:16: White Blood Count 9.7, Red Blood Count 4.70, Hemoglobin 15.0, Hematocrit 46, Mean Corpuscular Volume 99, Mean Corpuscular Hemoglobin 32, Mean Corpuscular Hemoglobin Concent 32, Red Cell Distribution Width 12.6, Platelet Count 250, Mean Platelet Volume 9.9, Immature Granulocyte % (Auto) 0, Neutrophils (%) (Auto) 73, Lymphocytes (%) (Auto) 19, Monocytes (%) (Auto) 6, Eosinophils (%) (Auto) 1, Basophils (%) (Auto) 0, Neutrophils # (Auto) 7.1, Lymphocytes # (Auto) 1.8, Monocytes # (Auto) 0.6, Eosinophils # (Auto) 0.1, Basophils # (Auto) 0.0, Immature Granulocyte # (Auto) 0.0, Prothrombin Time 12.9, INR Comment 0.9, Activated Partial Thromboplast Time 30, Sodium Level 143, Potassium Level 4.0, C hloride Level 108H, Carbon Dioxide Level 21, Anion Gap 14, Blood Urea Nitrogen 29H, Creatinine 0.83, Estimat Glomerular Filtration Rate 86, BUN/Creatinine Ratio 35, Glucose Level 104, Calcium Level 9.9, Corrected Calcium , Total Bilirubin 0.3, Aspartate Amino Transf (AST/SGOT) 31, Alanine Aminotransferase (ALT/SGPT) 27, Alkaline Phosphatase 79, Troponin I < 0.028, Total Protein 8.1, Albumin 4.9H 07/07/22 20:28: Glucometer 111H 07/07/22 20:56: Urine Opiates Screen NEGATIVE, Urine Oxycodone Screen NEGATIVE, Urine Methadone Screen NEGATIVE, Urine Propoxyphene Screen NEGATIVE, Urine Barbiturates Screen NEGATIVE, Ur Tricyclic Antidepressants Screen NEGATIVE, Urine Phencyclidine Screen NEGATIVE, Urine Amphetamines Screen NEGATIVE, Urine Methamphetamines Screen NEGATIVE, Urine Benzodiazepines Screen NEGATIVE, Urine Cocaine Screen NEGATIVE, Urine Cannabinoids Screen NEGATIVE 07/07/22 23:26: Glucometer 114H 07/08/22 04:20: White Blood Count 6.6, Red Blood Count 4.13, Hemoglobin 13.0, Hematocrit 41, Mean Corpuscular Volume 98, Mean Corpuscular Hemoglobin 32, Mean Corpuscular Hemoglobin Concent 32, Red Cell Distribution Width 12.5, Platelet Count 191, Mean Platelet Volume 10.2, Immature Granulocyte % (Auto) 0, Neutrophils (%) (Auto) 70, Lymphocytes (%) (Auto) 21, Monocytes (%) (Auto) 6, Eosinophils (%) (Auto) 2, Basophils (%) (Auto) 0, Neutrophils # (Auto) 4.6, Lymphocytes # (Auto) 1.4, Monocytes # (Auto) 0.4, Eosinophils # (Auto) 0.1, Basophils # (Auto) 0.0, Immature Granulocyte # (Auto) 0.0, Sodium Level 140, Potassium Level 3.8, Chloride Level 109H, Carbon Dioxide Level 19L, Anion Gap 12, Blood Urea Nitrogen 15, Creatinine 0.58L, Estimat Glomerular Filtration Rate 110, BUN/Creatinine Ratio 26, Glucose Level 89, Calcium Level 8.7, Corrected Calcium 8.8, Phosphorus Level 3.0, Magnesium Level 1.8, Total Bilirubin 0.5, Aspartate Amino Transf (AST/SGOT) 22, Alanine Aminotransferase (ALT/SGPT) 20, Alkaline Phosphatase 56, Total Protein 6.3L, Albumin 3.9 Conclusion/Plan Homonymous hemianopia and monocular photopsia - continue monitoring for further vision changes or loss. F/U with neurology and ophthalmology. Hypertension - continue medical management and monitor for symptoms of hypertensive urgency or emergency History of brain aneurysm post-coiling History of stroke versus PRES Possible TIA - No evidence of stroke on CT or CTA of the brain. Continue daily baby aspirin. Possible migraine with aura without headache - Loss of balance and depth perception paired with other visual symptoms and MRI results make this diagnosis less likely. Possible localized seizure disorder Possible metastatic disease or primary brain neoplasm - progressive MRI results are suspicious. Further imaging studies required as well as consult or F/U with neurology, ophthalmology, or oncology. LIZBETH PRABHAKAR DO 07/09/22 0536: History of Present Illness History of Present Illness Date of Admission 07/07/2022 Time Seen by Provider: 09:00 Allergies and Home Medications Allergies Coded Allergies: bee venom protein (honey bee) (Verified Allergy, Unknown, Anaphylaxis, 03/11/22) Patient Home Medication List Acetaminophen (Tylenol Extra Strength) 500 Mg Tablet, 500-1,000 MG PO Q8H PRN for PAIN-MILD (1-4), (Reported) Entered as Reported by: ROBERT PEARSON on 03/12/221158 Last Action: Reviewed Amlodipine Besylate (Amlodipine Besylate) 10 Mg Tablet, 10 MG PO DAILY, (Reported) Entered as Reported by: ROBERT PEARSON on 03/12/22 115 Last Action: Reviewed Aspirin (Aspirin EC) 81 Mg Tablet.dr, 81 MG PO DAILY, (Reported) Entered as Reported by: ROBERT PEARSON on 07/08/22 5406 Last Action: Reviewed Cetirizine HCl (Cetirizine HCl) 10 Mg Tablet, 10 MG PO DAILY PRN for ALLERGY SYMPTOMS, (Reported) Entered as Reported by: ROBERT PEARSON on 03/12/221158 Last Action: Reviewed Cholecalciferol (Vitamin D3) (Vitamin D3) 125 Mcg (5000 Unit) Tablet, 125 MCG PO DAILY, (Reported) Entered as Reported by: ROBERT PEARSON on 03/12/221158 Last Action: Reviewed Levetiracetam (Levetiracetam) 500 Mg Tablet, 500 MG PO BID Prescribed by: LIZBETH PRABHAKAR on 07/08/22 1646 Magnesium Citrate (Magnesium Citrate) 125 Mg Capsule, 125 MG PO 1700, (Reported) Entered as Reported by: ROBERT PEARSON on 07/08/22 1536 Last Action: Reviewed Metoprolol Tartrate (Metoprolol Tartrate) 50 Mg Tablet, 50 MG PO BID, (Reported) Entered as Reported by: ROBERT PEARSON on 03/12/221158 Last Action: Reviewed Telmisartan (Telmisartan) 20 Mg Tablet, 20 MG PO DAILY, (Reported) Entered as Reported by: ROBERT PEARSON on 03/12/221158 Last Action: Reviewed Ubidecarenone (Coq-10) 100 Mg Capsule, 200 MG PO DAILY, (Reported) Entered as Reported by: ROBERT PEARSON on 03/12/221158 Last Action: Reviewed Discontinued Medications Aspirin (Aspirin EC) 81 Mg Tablet.dr, 81 MG PO DAILY Discontinued Reason: Duplicate Order Prescribed by: KEISHA CONTRERAS on 03/12/22 1257 Last Action: Discontinued Ibuprofen (Ibuprofen) 200 Mg Tablet, 400 MG PO Q8H PRN for PAIN-MILD (1-4), (Reported) Discontinued Reason: No Longer Taking Entered as Reported by: ROBERT PEARSON on 03/12/221158 Last Action: Discontinued Magnesium Oxide (Magnesium Oxide) 500 Mg Tablet, 500 MG PO DAILY, (Reported) Discontinued Reason: Prescription changed Entered as Reported by: ROBERT PEARSON on 03/12/221158 Naproxen Sodium (Aleve) 220 Mg Tablet, 220 MG PO Q12H PRN for PAIN-MILD (1-4), (Reported) Discontinued Reason: No Longer Taking Entered as Reported by: ROBERT PEARSON on 03/12/221158 Last Action: Discontinued Past Znqxyqs-Hamdmu-Dkijjo Hx Patient Social History Marrital Status: single Employed/Student: employed Smoking Status: Former Smoker Cardiovascular High Cholesterol, Hypertension Neurological Stroke Review of Systems Constitutional: see HPI, malaise, weakness Physical Exam General Appearance: No Apparent Distress, WD/WN, Chronically ill Respiratory: Lungs Clear, Normal Breath Sounds Cardiovascular: Regular Rate, Rhythm Neurologic/Psychiatric: Alert, Oriented x3, No Motor/Sensory Deficits, Normal Mood/Affect Short Stay Diagnosis Discharge Diagnosis-Short Stay Admission Diagnosis: TIA h/o CVA Final Discharge Diagnosis: Seizure-like activity Presumed primary brain cancer HTN HLP Conclusion Conclusion/Plan DC home due to 15yo son at home alone See Dr Hutson tomorrow at 0930 to establish care Needs NSG for brain biopsy I spoke to Dr Hutson at 1810 in-depth for transfer of care on this complex case and updated him on negative CT chest/abd/pelvis and the fact I spoke to Dr Carrasco at [facility] and he recommended NSG for brain biopsy for presumed primary brain cancer if CT's were negative in identifying any mets source. Pool was Rxed due to suspicion her symptoms were seizure like activity. Supervisory-Addendum Brief Verification & Attestation Participated in pt care: history, MDM, physical Personally performed: exam, history, MDM, supervision of care Care discussed with: Medical Student Procedures: n/a Results interpretation: Verified all documentation Verification and Attestation of Medical Student E/M Service A medical student performed and documented this service in my presence. I reviewed and verified all information documented by the medical student and made modifications to such information, when appropriate. I personally performed the physical exam and medical decision making. Lizbeth Prabhakar, Jul 09, 2022,05:32 CHRISTOPHER SAWYER Jul 08, 2022 12:34 LIZBETH PRABHAKAR DO Jul 09, 2022 05:36
[2022-07-08] MEDS ORDERED: MAGN125C PO (15:36)
[2022-07-08] MEDS ORDERED: ASPI-1238 PO (15:36)
[2022-07-08] MEDS ORDERED: IOHEXOL 350 MG/ML 100 ML (OMNIPAQUE 350) VIAL IV ONE (16:30)
[2022-07-08] MEDS ORDERED: CATHETER FLUSH 10 ML SYR IV PRN (16:30)
[2022-07-08] MEDS ORDERED: HOLD METFORMIN - RECEIVED CONTRAST 20 ML VIAL IV SCH (16:30)
[2022-07-08] MEDS ORDERED: NS 100 ML (IVPB) BAG IV ONE (16:30)
[2022-07-08 16:33] VITALS: BP 116/74
[2022-07-08] MEDS ORDERED: LEVE500T6 PO (16:46)
--- NOTE | 2022-07-08 17:01 | Diagnostic Imaging Report ---
PROCEDURE: CT chest, abdomen, and pelvis with contrast. TECHNIQUE: Multiple contiguous axial images were obtained through the chest, abdomen, and pelvis after the administration of intravenous contrast. Auto Exposure Controls were utilized during the CT exam to meet ALARA standards for radiation dose reduction. INDICATION: Brain mass. Metastatic workup. COMPARISON: None available. FINDINGS: CT CHEST: No abnormality of the trachea. There is no pneumonia or edema. No suspicious pulmonary nodules. No pleural effusion or pneumothorax. Thyroid is normal. No supraclavicular or axillary lymphadenopathy. No mediastinal or hilar lymphadenopathy. The heart is normal in size without pericardial effusion. 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 No worrisome focal osseous lesions in the chest. CT ABDOMEN AND PELVIS: No free intraperitoneal air or fluid. Low attenuation of the liver is most indicative of steatosis. No focal hepatic lesion. Portal vein is patent. The spleen and pancreas are normal. No adrenal mass. No renal mass or obstructive uropathy. Urinary bladder is compressed. A 4.6 x 3.2 cm left ovarian cyst is present. Uterus is normal in appearance. No bowel obstruction or pericolonic inflammatory change. Stomach is partially filled with fluid and food debris. Normal-caliber abdominal aorta. No worrisome focal osseous lesions. IMPRESSION: 1. No features of primary or metastatic disease in the chest, abdomen or pelvis. 2. Left adnexal cystic structure is likely an ovarian cyst. Follow-up nonemergent pelvic ultrasound could be performed for more accurate characterization. Dictated by: Dictated on workstation # [id number]
[2022-07-08 17:22] VITALS: BP 116/74
== END 2022-07-08 17:01 | disposition home or self-care (01) ==
LOC: EDUNIT# 20:03 → ER 20:06 → ICU 21:28 → UNDOADMOB 21:28 → ICU 22:25 → 4TH 07-08 12:49 → UNDODISOB 07-08 17:01
PROVIDERS: ADMIT Internal Medicine; ATTEND Internal Medicine
DX: H53.462 Homonymous bilateral field defects, left side (principal); H53.19 Other subjective visual disturbances; H53.002 Unspecified amblyopia, left eye; I10 Essential (primary) hypertension; F17.210 Nicotine dependence, cigarettes, uncomplicated; Z86.79 Personal history of other diseases of the circulatory system; Z79.899 Other long term (current) drug therapy; Z28.311 Partially vaccinated for COVID-19; Z79.82 Long term (current) use of aspirin
CPT/HCPCS: 70450; 70496; 70498; 70553 ×2; 71045; 71260; 74177; 80053 ×2; 80306; 81000; 82947; 83735; 84100; 84484; 85025 ×2; 85610; 85730; 87081; 93005; 93041; 96361; 96366; 97161; 99285; G0378 ×2; 36415

== ENCOUNTER → 2022-10-06 | Outpatient (CLI) | payer OTHER ==
[~2022-10-06] MED LIST changes: +GADOTERATE 0.5 MMOL/ML (CLARISCAN) 20 ML VIAL IV ONE; +LEVE500T6 PO; +MAGN125C PO
--- NOTE | 2022-10-06 14:20 | Diagnostic Imaging Report ---
PROCEDURE: MR imaging of the brain with and without contrast. TECHNIQUE: Multiplanar, multisequence MR imaging of the brain was performed with and without contrast. INDICATION: Vision and balance problems. History of prior aneurysm repair. COMPARISON: 03/12/2022. 07/08/2022. FINDINGS: No acute ischemia, mass, or hemorrhage. No abnormal enhancement. The ventricles, cortical sulci, and basilar cisterns are symmetric and unremarkable. The sellar and suprasellar regions have a normal appearance. The brainstem and posterior fossa are unremarkable. The paranasal sinuses and mastoid air cells demonstrate normal signal characteristics. The globes and orbits are symmetric and unremarkable. The scalp and calvarium have a normal appearance. IMPRESSION: 1. No acute ischemia, mass, or hemorrhage. No abnormal enhancement. Dictated by: Dictated on workstation # [id number]
== END ==
LOC: RAD 12:05
PROVIDERS: ATTEND Neurological Surgery
DX: I63.89 Other cerebral infarction (principal); G93.9 Disorder of brain, unspecified; Z98.890 Other specified postprocedural states
CPT/HCPCS: 70553

== ENCOUNTER → 2022-10-06 | Outpatient (CLI) | payer OTHER ==
[~2022-10-06] MED LIST changes: -GADOTERATE 0.5 MMOL/ML (CLARISCAN) 20 ML VIAL IV ONE
--- NOTE | 2022-10-06 14:20 | Diagnostic Imaging Report ---
PROCEDURE: MR angiography of the brain without the use of contrast. TECHNIQUE: 3D [id number] non contrast enhanced MR angiography of the head was performed. A source data was reformatted into rotating MIP projections. INDICATION: Vision and balance issues. Prior aneurysm repair. Followup. COMPARISON: 07/07/2022. FINDINGS: There is appropriate flow-related enhancement within the intracranial segments of the internal carotid arteries. There is no significant stenosis. Prior aneurysm coiling is seen at the bilateral carotid termini. There is appropriate flow-related enhancement within the anterior and middle cerebral artery branches. Posterior circulation demonstrates unremarkable vertebrals and basilar artery. The bilateral posterior inferior cerebral arteries and bilateral superior cerebellar arteries are patent. The posterior cerebral arteries appear unremarkable. There is no evidence of vascular malformation. IMPRESSION: 1. There is no MR evidence of hemodynamically significant stenosis or vessel occlusion. 2. Prior aneurysm coiling at the bilateral carotid termini. No new aneurysms are seen. No evidence of vascular malformation. Dictated by: Dictated on workstation # [id number]
--- NOTE | 2022-10-06 14:22 | Diagnostic Imaging Report ---
PROCEDURE: MR angiography neck with and without contrast. TECHNIQUE: Pre and post contrast-enhanced MR angiography of the neck was performed. Source data was reformatted into rotating MIP projections. INDICATION: Vision and balance issues. Prior aneurysm repair. COMPARISON: 07/07/2022. FINDINGS: Aberrant right subclavian artery is again noted. The bilateral common carotid arteries are widely patent without stenosis or dissection. The internal carotid arteries are widely patent. No focal stenosis or dissection. The external carotid arteries are visualized and have a normal appearance. The left vertebral artery is slightly dominant. No focal stenosis or dissection of the bilateral vertebral arteries. IMPRESSION: 1. No stenosis or dissection of the bilateral carotid and vertebral systems. Dictated by: Dictated on workstation # [id number]
== END ==
LOC: RAD 12:06
PROVIDERS: ATTEND Neurological Surgery
DX: G93.9 Disorder of brain, unspecified (principal); I63.89 Other cerebral infarction
CPT/HCPCS: 70544; 70549

== ENCOUNTER 2022-12-12 14:39 | Emergency (ER) | payer OTHER ==
[~2022-12-12] VITALS: Ht 170.2 cm; Wt 69.9 kg
--- NOTE | 2022-12-12 15:49 | ED General ---
General Chief Complaint: Neurological Problems Stated Complaint: OFF BALANCE | VISION ISSUES Nursing Triage Note: PT TO ROOM BY WHEELCHAIR. STATES SHE WAS AT WORK AND HAD AN EPISODE OF "BEING OFF BALANCE AND VISION TROUBLES" WHILE AT WORK. PT STATES THIS HAPPENS TO HER EVERY ONCE IN AWHILE. 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 STATES HER NEUROLOGIST HAS HER WEARING A HEART MONITOR CURRENTLY WELL. Source of Information: Patient Exam Limitations: No Limitations History of Present Illness Date Seen by Provider: Dec 12, 2022 Time Seen by Provider: 15:42 Initial Comments Patient is a 52-year-old female who presents to the ED for off-balance and visual troubles while at work. 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 She states around 10 AM she was using a glucometer to check blood sugar. She was having difficulty with depth perception while taking blood sugar. She started having "flashes" in her left sided vision. She reports 4 squares in her left-sided vision that lasted about an hour. She had improvement for a few hours.. She states about 1 hour before arrival she started feeling off balance while walking with increasing flashing in her left-sided vision. She started leaning to the left side. Patient had to sit and close her eyes to help with the balance. She denied of any unilateral muscle weakness, facial droop, slurred speech, visual loss, chest pain, cough. There was concern that she may have had a occipital brain lesion vs stroke in Jul 2022 for similar complaints. She saw neurosurgeon in [place] this year which states there was no evidence of cancer. She had MRIs in October of her carotids and brain and saw Dr. Marie neurologist at [facility] October 29 and states her imaging was unremarkable. She had follow-up imaging in October MRA of her head, neck and MRI of her brain which were unremarkable. There was concern for atypical occipital strokes due to the visual changes and balance issues. Recommend taking a aspirin daily. Patient was placed on Keppra as a thought she was having seizure activity secondary to potential brain lesion and was recommend to stop the medication by the neurologist. She states she has had these episodes at least 4 times. She states she suffered a subdural hematoma 4 years ago secondary to popping her neck. She was noted to have 3 aneurysms and had coils placed. Patient is currently asymptomatic. She denies headache, visual changes, vomiting, diarrhea, chest pain, shortness of breath, unilateral muscle weakness or sensory changes. She has a pertinent history of multiple coiled aneurysms by neuro interventional radiology at [facility] in [facility]. Allergies and Home Medications Allergies Coded Allergies: bee venom protein (honey bee) (Verified Allergy, Unknown, Anaphylaxis, 03/11/22) Patient Home Medication List Home Medication List Reviewed: Yes Acetaminophen (Tylenol Extra Strength) 500 Mg Tablet, 500-1,000 MG PO Q8H PRN for PAIN-MILD (1-4), (Reported) Entered as Reported by: ROBERT PEARSON on 03/12/22 115 Amlodipine Besylate (Amlodipine Besylate) 10 Mg Tablet, 10 MG PO DAILY, (Reported) Entered as Reported by: ROBERT PEARSON on 03/12/22 115 Aspirin (Aspirin EC) 81 Mg Tablet.dr, 81 MG PO DAILY, (Reported) Entered as Reported by: ROBERT PEARSON on 07/08/22 1536 Cetirizine HCl (Cetirizine HCl) 10 Mg Tablet, 10 MG PO DAILY PRN for ALLERGY SYMPTOMS, (Reported) Entered as Reported by: ROBERT PEARSON on 03/12/22 1159 Cholecalciferol (Vitamin D3) (Vitamin D3) 125 Mcg (5000 Unit) Tablet, 125 MCG PO DAILY, (Reported) Entered as Reported by: ROBERT PEARSON on 03/12/22 1159 Levetiracetam (Levetiracetam) 500 Mg Tablet, 500 MG PO BID Prescribed by: MIKE PRABHAKAR on 07/08/22 1646 Magnesium Citrate (Magnesium Citrate) 125 Mg Capsule, 125 MG PO 1700, (Reported) Entered as Reported by: ROBERT PEARSON on 07/08/22 1536 Metoprolol Tartrate (Metoprolol Tartrate) 50 Mg Tablet, 50 MG PO BID, (Reported) Entered as Reported by: ROBERT PEARSON on 03/12/22 1159 Telmisartan (Telmisartan) 20 Mg Tablet, 20 MG PO DAILY, (Reported) Entered as Reported by: ROBERT PEARSON on 03/12/22 1159 Ubidecarenone (Coq-10) 100 Mg Capsule, 200 MG PO DAILY, (Reported) Entered as Reported by: ROBERT PEARSON on 03/12/22 1159 Review of Systems Review of Systems Constitutional: No chills, No diaphoresis, No malaise, No weakness EENTM: blurred vision, other (Left-sided flashing vision); No hearing loss, No double vision Respiratory: No cough, No dyspnea on exertion, No phlegm, No short of breath Cardiovascular: No chest pain, No edema Gastrointestinal: No abdominal pain, No diarrhea, No vomiting Genitourinary: No decreased output, No discharge Musculoskeletal: No back pain, No joint pain Past Ckceukj-Awhekm-Ngkcmu Hx Patient Social History Tobacco Use?: Yes Tobacco type used: Cigarettes Smoking Status: Current Everyday Smoker Alcohol Use?: Yes Alcohol type: Beer Alcohol Frequency: Daily Immunizations Up To Date First/Initial COVID19 Vaccinat: 2020 Second COVID19 Vaccination Cooper: [facility] DATE Third COVID19 Vaccination Date: 2020 Past Medical History Surgeries: Yes (Coiling aneurysm and brain) High Cholesterol, Hypertension Stroke Family Medical History No Pertinent Family Hx Physical Exam Vital Signs Vital Signs - First Documented 12/12/22 15:00 Temp 37.0 Pulse 85 Resp 14 B/P (MAP) 137/86 (103) Pulse Ox 95 Capillary Refill : Height, Weight, BMI Height: '" Weight: lbs. oz. kg; 24.00 BMI Method: General Appearance: No Apparent Distress, WD/WN Eyes: Bilateral Eye Normal Inspection, Bilateral Eye PERRL, Bilateral Eye Abnormal EOM HEENT: PERRL/EOMI, TMs Normal, Normal ENT Inspection, Pharynx Normal Neck: Full Range of Motion, Normal Inspection, Non Tender, Supple Respiratory: Chest Non Tender, Lungs Clear, Normal Breath Sounds, No Accessory Muscle Use, No Respiratory Distress Cardiovascular: Regular Rate, Rhythm, No Edema, No Gallop, No JVD, No Murmur Gastrointestinal: Normal Bowel Sounds, No Organomegaly, No Pulsatile Mass, Non Tender Back: Normal Inspection, No CVA Tenderness, No Vertebral Tenderness Extremity: Normal Capillary Refill, Normal Inspection, Normal Range of Motion Neurologic/Psychiatric: Alert, Oriented x3, No Motor/Sensory Deficits, Normal Mood/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, 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 Norm as Tested Skin: Normal Color, Warm/Dry Progress/Results/Core Measures Suspected Sepsis SIRS Temperature: Pulse: 85 Respiratory Rate: 14 Laboratory Tests 12/12/22 15:49: White Blood Count 10.6 Blood Pressure 137 /86 Mean: 103 Laboratory Tests 12/12/22 15:49: Creatinine 0.63, INR Comment 0.9, Platelet Count 228, Total Bilirubin 0.5 Results/Orders Lab Results Laboratory Tests Test 12/12/22 15:49 12/12/22 16:00 Range/Units White Blood Count 10.6 4.3-11.0 10^3/uL Red Blood Count 4.31 3.80-5.11 10^6/uL Hemoglobin 13.9 11.5-16.0 g/dL Hematocrit 42 35-52 % Mean Corpuscular Volume 98 80-99 fL Mean Corpuscular Hemoglobin 32 25-34 pg Mean Corpuscular Hemoglobin Concent 33 32-36 g/dL Red Cell Distribution Width 12.5 10.0-14.5 % Platelet Count 228 130-400 10^3/uL Mean Platelet Volume 9.6 9.0-12.2 fL Immature Granulocyte % (Auto) 0 % Neutrophils (%) (Auto) 80 H 42-75 % Lymphocytes (%) (Auto) 12 12-44 % Monocytes (%) (Auto) 6 0-12 % Eosinophils (%) (Auto) 1 0-10 % Basophils (%) (Auto) 0 0-10 % Neutrophils # (Auto) 8.5 H 1.8-7.8 10^3/uL Lymphocytes # (Auto) 1.3 1.0-4.0 10^3/uL Monocytes # (Auto) 0.6 0.0-1.0 10^3/uL Eosinophils # (Auto) 0.2 0.0-0.3 10^3/uL Basophils # (Auto) 0.0 0.0-0.1 10^3/uL Immature Granulocyte # (Auto) 0.0 0.0-0.1 10^3/uL Prothrombin Time 12.6 12.2-14.7 SEC INR Comment 0.9 0.8-1.4 Activated Partial Thromboplast Time 28 24-35 SEC Sodium Level 140 135-145 MMOL/L Potassium Level 4.3 3.6-5.0 MMOL/L Chloride Level 106 98-107 MMOL/L Carbon Dioxide Level 20 L 21-32 MMOL/L Anion Gap 14 5-14 MMOL/L Blood Urea Nitrogen 15 7-18 MG/DL Creatinine 0.63 0.60-1.30 MG/DL Estimat Glomerular Filtration Rate 107 BUN/Creatinine Ratio 24 Glucose Level 103 70-105 MG/DL Calcium Level 9.8 8.5-10.1 MG/DL Corrected Calcium 8.5-10.1 MG/DL Total Bilirubin 0.5 0.1-1.0 MG/DL Aspartate Amino Transf (AST/SGOT) 36 H 5-34 U/L Alanine Aminotransferase (ALT/SGPT) 39 0-55 U/L Alkaline Phosphatase 71 40-136 U/L Troponin I < 0.028 <0.028 NG/ML Total Protein 7.3 6.4-8.2 GM/DL Albumin 4.6 H 3.2-4.5 GM/DL Glucometer 107 70-110 MG/DL My Orders Orders - ANGEL LUIS CAMERON Cbc With Automated Diff (12/12/22 15:41) Protime With Inr (12/12/22 15:41) Partial Thromboplastin Time (12/12/22 15:41) Comprehensive Metabolic Panel (12/12/22 15:41) Troponin I Screven (12/12/22 15:41) Ekg Tracing (12/12/22 15:41) Accucheck Stat ONCE (12/12/22 15:41) Ed Iv/Invasive Line Start (12/12/22 15:41) Vital Signs Stroke Patient Q15M (12/12/22 15:41) Ct Head Wo-R/O Stroke (12/12/22 15:41) Monitor-Rhythm Ecg Trace Only (12/12/22 15:41) Dysphagia Screening Tool [id number] (12/12/22 15:41) Vital Signs/I&O 12/12/22 12/12/22 15:00 17:17 Temp 37.0 Pulse 85 80 Resp 14 14 B/P (MAP) 137/86 (103) 140/76 Pulse Ox 95 95 Capillary Refill : Blood Pressure Mean: 103 Departure Communication (PCP) Reviewed previous ER visits, H&P, lab testing. Patient with history of aneurysm with coils performed by interventional radiology at [facility] 4 years ago. She was seen here last year in July concerning for brain lesion versus occipital stroke. She followed up with neurosurgeon in [place] who felt like this was not secondary to cancer. Recommended followed up with neurology at [facility]. MRA of the head Oct 2022 showed no MR evidence of hemodynamically significant stenosis or vessel occlusion. MRA of the neck Oct 2022 showed no stenosis or dissection of the bilateral carotid and vertebral systems. She followed up with Dr. Marie neurology October 29. Patient was diagnosed with atypical occipital stroke. She is currently on a 81 mg aspirin. She denies of any blood thinners. Patient on arrival NIH of 0. She is currently asymptomatic. Flashing in her vision has completely resolved. Appear to improve when she closed her eye. But she was having difficulty with depth perception, gait and balance before arrival. Similar to her other occurrence. due to her complaint CT scan of the head general lab work CBC, CMP, troponin, EKG was ordered. CT scan head unremarkable. Lab work grossly unremarkable. She is not tachycardic or hypoxic. No recent URI symptoms. She does not appear toxic. No focal neural deficits or neurological red flag findings currently. Contacted [facility] neurology and spoke to Dr. Sharon dozier who states that her symptoms could be related to a migraine and discussed a migraine cocktail however she is currently asymptomatic. she discussed if symptoms continue to improve and asymptomatic She can be discharge home without any further imaging such as MRI or CT angio head and neck. recommend further imaging with MRI if symptomatic which she is not. She is currently asymptomatic can be discharged with her baby aspirin and to follow-up with Dr. Marie. Discussed these results with patient. She feels comfortable going home. It was strongly recommend returning if symptoms do worse. Concerning for TIA versus migraine. Impression Primary Impression: TIA (transient ischemic attack) Disposition: 01 HOME, SELF-CARE Condition: Stable Departure-Patient Inst. Decision time for Depature: 17:08 Referrals: CHACHO CRUMP MD (PCP/Family) Primary Care Physician Patient Instructions: Transient Ischemic Attack (DC) Add. Discharge Instructions: Recommend following up with neurology at [facility] Dr. Marie. If any worsening symptoms return back to ED. All discharge instructions reviewed with patient and/or family. Voiced understanding. Work/School Note: Work Release Form Date Seen in the Emergency Department: Dec 12, 2022 Return to Work: Dec 14, 2022 ANGEL LUIS CAMERON Dec 12, 2022 15:49
[2022-12-12 15:57] LABS: BASOPHILS % (AUTO) 0 % (0-10); EOSINOPHILS # (AUTO) 0.2 10^3/uL (0.0-0.3); EOSINOPHILS % (AUTO) 1 % (0-10); HEMATOCRIT 42 % (35-52); HEMOGLOBIN 13.9 g/dL (11.5-16.0); LYMPHOCYTES # (AUTO) 1.3 10^3/uL (1.0-4.0); LYMPHOCYTES % (AUTO) 12 % (12-44); MEAN CORPUSCULAR HEMOGLOBIN 32 pg (25-34); MEAN CORPUSCULAR HGB CONC 33 g/dL (32-36); MEAN CORPUSCULAR VOLUME 98 fL (80-99); MEAN PLATELET VOLUME 9.6 fL (9.0-12.2); MONOCYTES # (AUTO) 0.6 10^3/uL (0.0-1.0); MONOCYTES % (AUTO) 6 % (0-12); NEUTROPHILS # (AUTO) 8.5 10^3/uL (1.8-7.8); NEUTROPHILS % (AUTO) 80 % (42-75); PLATELET COUNT 228 10^3/uL (130-400); WHITE BLOOD COUNT 10.6 10^3/uL (4.3-11.0)
[2022-12-12 16:04] LABS: ALBUMIN 4.6 GM/DL (3.2-4.5); CHLORIDE 106 MMOL/L (98-107); POTASSIUM 4.3 MMOL/L (3.6-5.0); SODIUM 140 MMOL/L (135-145)
[2022-12-12 16:05] LABS: CALCIUM 9.8 MG/DL (8.5-10.1)
[2022-12-12 16:06] LABS: GLUCOSE 103 MG/DL (70-105)
[2022-12-12 16:07] LABS: TOTAL PROTEIN 7.3 GM/DL (6.4-8.2)
[2022-12-12 16:08] LABS: BILIRUBIN,TOTAL 0.5 MG/DL (0.1-1.0); CARBON DIOXIDE 20 MMOL/L (21-32); INR 0.9 (0.8-1.4); PROTHROMBIN TIME PATIENT 12.6 SEC (12.2-14.7)
[2022-12-12 16:10] LABS: ALKALINE PHOSPHATASE 71 U/L (40-136); CREATININE SERUM 0.63 MG/DL (0.60-1.30); GFR ESTIMATED 107
[2022-12-12 16:11] LABS: BUN/CREATININE RATIO 24
[2022-12-12 16:13] LABS: ALANINE AMINOTRANSFERASE 39 U/L (0-55)
--- NOTE | 2022-12-12 16:16 | Diagnostic Imaging Report ---
PROCEDURE: CT head wo r/o stroke. TECHNIQUE: Multiple contiguous axial images were obtained through the brain without the use of intravenous contrast. Auto Exposure Controls were utilized during the CT exam to meet ALARA standards for radiation dose reduction. Reason for exam: Off balance, double vision. Comparison: MRA of the neck on 10/06/2022, MRI of the brain 10/06/2022. FINDINGS: Postsurgical changes from prior endovascular treatment of aneurysms. The rockwell-white matter differentiation is preserved. No intracranial mass or fluid collection. No midline shift or mass effect. The cisterns are patent. No acute hemorrhage. The paranasal sinuses and mastoids are clear. The globes and orbits are normal. IMPRESSION: No acute intracranial hemorrhage. No large vascular territory mendoza-white loss. No intracranial mass, midline shift, or hydrocephalus. Dictated by: Dictated on workstation # [id number]
[2022-12-12 17:17] VITALS: BP 140/76
== END 2022-12-12 17:19 | disposition home or self-care (01) ==
LOC: EDUNIT# 14:39 → ER 14:42
DX: G45.9 Transient cerebral ischemic attack, unspecified (principal); F17.210 Nicotine dependence, cigarettes, uncomplicated; Z79.82 Long term (current) use of aspirin
CPT/HCPCS: 36415; 70450; 80053; 82947; 84484; 85025; 85610; 85730; 93005; 93041